=== PATIENT | female | born 1960 | race Caucasian/White ===

== ENCOUNTER 2017-07-14 16:53 | Inpatient (IN) | payer OTHER ==
[~2017-07-14] VITALS: Ht 177.8 cm; Wt 70.2 kg
[2017-07-14] VITALS (7 sets, daily range): BP systolic 110–121; BP diastolic 78–86; PULSE 101–123; RESP 16–28; TEMP 100.5–101; O2SAT 93–99
[2017-07-14] MEDS ORDERED: IOHEXOL 350 MG/ML 10 ML VIAL (for RAD DIAG) IVCONTRAST ONE (16:54)
[2017-07-14] MEDS ORDERED: SODIUM CHLOR 0.9% 1000 ML INJ 1,000 ML IV ONE ×2 (17:15)
[2017-07-14] MEDS ORDERED: ACETAMINOPHEN 650 MG SUPP RECTAL ONE (17:15)
--- NOTE | 2017-07-14 17:24 | PD ---
HPI Chief Complaint: Neuro Symptoms/ Deficits Time Seen by Provider: 16:55 Travel History International Travel<30 days: No Contact w/Intl Traveler<30days: No Traveled to known affect area: No History of Present Illness HPI Middle-aged female brought in by ambulance from home for evaluation of possible stroke. EMS reports that the patient has history of seizure disorder. She was last seen normal at 6 AM by her before he left work. She arrives here at just after 5 PM with dense left hemiparesis, rightward gaze, and aphasia. She is unable to provide any history. She does follow commands and moves her right arm and leg when asked to do so. Heart rate was noted to be in the 120s and a rectal temp of 101F. Her airway is patent and protected. Labs drawn, normal saline bolus hung, and the patient was probably taken to CT scan for CT of her head. Apparently her is on his way to the emergency department. [facility] Social History Tobacco Use: No Allergies-Medications (Allergen,Severity, Reaction): Coded Allergies: Unable to Assess (Verified Allergy, Unknown, 07/14/17) Reported Meds & Prescriptions Reported Meds & Active Scripts Active Reported Keppra (Levetiracetam) Unknown Strength Tab Unknown Dose PO BID Review of Systems ROS Limitations: Clinical Condition Physical Exam Narrative GENERAL: Well-developed, well-nourished, awake, rightward gaze, follows commands and moves both arm and leg when asked to do so, aphasic SKIN: Focused skin assessment warm/dry. No lacerations, abrasions, or ecchymosis. HEAD: Atraumatic. Normocephalic. EYES: Left pupil is 6 mm, round, reactive to light, right pupil is 5 mm, round, reactive to light. Rightward gaze. No scleral icterus. No injection or drainage. ENT: No nasal bleeding or discharge. Mucous membranes pink and moist. NECK: Trachea midline. No JVD. No nuchal rigidity. CARDIOVASCULAR: Tachycardic, rate 120, regular. RESPIRATORY: No accessory muscle use. Clear to auscultation. Breath sounds equal bilaterally. GASTROINTESTINAL: Abdomen soft, non-tender, nondistended. MUSCULOSKELETAL: No obvious deformities. No clubbing. No cyanosis. No edema. NEUROLOGICAL: Awake and alert. Dense left hemiparesis. Normal muscle strength and right arm and leg. Rightward gaze. Data Data Last Documented VS Vital Signs Date Time Temp Pulse Resp B/P (MAP) Pulse Ox O2 Delivery O2 Flow Rate FiO2 07/14/17 17:05 94 Nasal Cannula 2.00 07/14/17 17:03 101.0 07/14/17 16:57 123 28 121/80 (94) Orders Orders Electrocardiogram (07/14/17 16:56) Prothrombin Time / Inr (Pt) (07/14/17 16:56) Act Partial Throm Time (Ptt) (07/14/17 16:56) Complete Blood Count With Diff (07/14/17 16:56) Comprehensive Metabolic Panel (07/14/17 16:56) Urinalysis - C+S If Indicated (07/14/17 16:56) Ct Brain W/O Iv Contrast(Rout) (07/14/17 16:56) Ecg Monitoring (07/14/17 16:56) Iv Access Insert/Monitor (07/14/17 16:56) Oximetry (07/14/17 16:56) Lactic Acid (07/14/17 17:10) Blood Culture (07/14/17 17:10) Acetaminophen Supp (Tylenol Supp) (07/14/17 17:15) Sodium Chlor 0.9% 1000 Ml Inj (Ns 1000 M (07/14/17 17:15) Sodium Chlor 0.9% 1000 Ml Inj (Ns 1000 M (07/14/17 17:15) Ckmb (Isoenzyme) Profile (07/14/17 16:56) Troponin I (07/14/17 16:56) Iohexol 350 Inj (Omnipaque 350 Inj) (07/14/17 16:54) Aspirin Supp (Aspirin Supp) (07/14/17 18:15) Type And Screen (07/14/17 18:09) Urine Culture (07/14/17 17:36) Chest, Single Ap (07/14/17 ) Alcohol (Ethanol) (07/14/17 17:35) Cta Brain W Iv Contrast W 3d (07/14/17 ) Cta Neck W Iv Contrast W 3d (07/14/17 ) Ceftriaxone Inj (Rocephin Inj) (07/14/17 18:30) CKMB (07/14/17 17:35) CKMB% (07/14/17 17:35) Arterial Blood Gas (Abg) (07/14/17 ) Admit Order (Ed Use Only) (07/14/17 20:21) Labs Laboratory Tests Test 07/14/17 17:30 07/14/17 17:35 07/14/17 17:36 07/14/17 18:50 Lactic Acid Level 2.6 mmol/L Prothrombin Time 11.8 SEC Prothromb Time International Ratio 1.1 RATIO Activated Partial Thromboplast Time 21.7 SEC Blood Urea Nitrogen 9 MG/DL Creatinine 1.08 MG/DL Random Glucose 96 MG/DL Total Protein 8.2 GM/DL Albumin 2.9 GM/DL Calcium Level 9.3 MG/DL Alkaline Phosphatase 122 U/L Aspartate Amino Transf (AST/SGOT) 113 U/L Alanine Aminotransferase (ALT/SGPT) 30 U/L Total Bilirubin 1.1 MG/DL Sodium Level 139 MEQ/L Potassium Level 3.4 MEQ/L Chloride Level 108 MEQ/L Carbon Dioxide Level 14.1 MEQ/L Anion Gap 17 MEQ/L Estimat Glomerular Filtration Rate 44 ML/MIN Total Creatine Kinase 347 U/L Creatine Kinase MB 18.1 NG/ML Creatine Kinase MB % 5.2 % Troponin I 14.60 NG/ML Ethyl Alcohol Level LESS THAN 3 MG/DL Urine Color YELLOW Urine Turbidity HAZY Urine pH 6.0 Urine Specific [place] 1.013 Urine Protein 30 mg/dL Urine Glucose (UA) NEG mg/dL Urine Ketones NEG mg/dL Urine Occult Blood SMALL Urine Nitrite POS Urine Bilirubin NEG Urine Urobilinogen LESS THAN 2.0 MG/DL Urine Leukocyte Esterase SMALL Urine RBC 1 /hpf Urine WBC 9 /hpf Urine Hyaline Casts 9 /lpf Urine Mucus FEW /lpf Microscopic Urinalysis Comment CATH-CULTURE IND White Blood Count 15.8 TH/MM3 Red Blood Count 3.33 MIL/MM3 Hemoglobin 11.6 GM/DL Hematocrit 36.7 % Mean Corpuscular Volume 110.3 FL Mean Corpuscular Hemoglobin 35.0 PG Mean Corpuscular Hemoglobin Concent 31.7 % Red Cell Distribution Width 14.0 % Platelet Count 109 TH/MM3 Mean Platelet Volume 9.1 FL Neutrophils (%) (Auto) 89.8 % Lymphocytes (%) (Auto) 3.7 % Monocytes (%) (Auto) 6.4 % Eosinophils (%) (Auto) 0.0 % Basophils (%) (Auto) 0.1 % Neutrophils # (Auto) 14.2 TH/MM3 Lymphocytes # (Auto) 0.6 TH/MM3 Monocytes # (Auto) 1.0 TH/MM3 Eosinophils # (Auto) 0.0 TH/MM3 Basophils # (Auto) 0.0 TH/MM3 CBC Comment DIFF FINAL Differential Comment Test 07/14/17 20:10 Blood Gas Puncture Site LT FEMORAL Blood Gas Patient Temperature 98.6 Blood Gas HCO3 14 mmol/L Blood Gas Base Excess -11.0 mmol/L Blood Gas Oxygen Saturation 93 % Arterial Blood pH 7.32 Arterial Blood Partial Pressure CO2 28 mmHg Arterial Blood Partial Pressure O2 77 mmHG Arterial Blood Oxygen Content 15.7 Vol % Arterial Blood Carboxyhemoglobin 1.1 % Arterial Blood Methemoglobin 0.6 % Blood Gas Hemoglobin 12.0 G/DL Oxygen Delivery Device NASAL CANNULA Blood Gas Liter Flow 3 L/M MDM Medical Decision Making Medical Screen Exam Complete: Yes Emergency Medical Condition: Yes Differential Diagnosis CVA/ICH, Cedric's paralysis, metabolic abnormality, sepsis, rhabdomyolysis, meningitis, encephalitis Narrative Course The patient presents with dense left hemiparesis with rightward gaze. Stroke alert was not called because of unknown time of onset of symptoms. Last seen normal at 6 AM and presented to the emergency department just after 5 PM. 6:00 PM: The patient's johnna Hui is at the bedside. I made him aware of the patient's clinical condition. He tells me that the patient drinks alcohol daily drinking between 6 and 8 mixed drinks with rum and Coke daily. She had a head trauma in 2013 that resulted in an intracranial hemorrhage. She was started on Keppra at that time and has been taking it for seizures. She is not on any antiplatelets or anticoagulants. Her full name is MIGEL HUI and her date of is 58. Initial vital signs show heart rate 123, blood pressure 121/80, pulse ox 93% on room air, rectal temp of 101F. CT brain: CONCLUSION: 1. Large area of encephalomalacia in the right frontal lobe suggests either old infarction or prior surgical defect. There is no evidence of prior craniotomy however. 2. Questionable hypodensity in the lateral right cortex, possibly beam hardening artifact. May consider performing an MRI of the brain with and without contrast for further characterization. Patient was given a dose of aspirin. CMP is remarkable for bicarbonate 14.1, AST 113, alkaline phosphatase 122. Total CK is 347. Troponin is 14.6. At approximately 7:00 PM the patient was signed out to Dr. Loaiza to follow-up with the rest of the patient's labs and formulated disposition. Vignesh Yancey MD Jul 14, 2017 17:24
--- NOTE | 2017-07-14 17:39 | RADRPT ---
EXAM DATE/TIME: 07/14/2017 17:22 [facility] COMPARISON: No previous studies available for comparison. INDICATIONS : Right side gaze, unresponsive. RADIATION DOSE: 35.24 CTDIvol (mGy) MEDICAL HISTORY : Seizures. SURGICAL HISTORY : None. ENCOUNTER: Initial ACUITY: 1 day PAIN SCALE: Non-responsive LOCATION: cranial TECHNIQUE: Multiple contiguous axial images were obtained of the head. Using automated exposure control and adj ustment of the mA and/or kV according to patient size, radiation dose was kept as low as reasonably a chievable to obtain optimal diagnostic quality images. DICOM format image data is available electro nically for review and comparison. FINDINGS: CEREBRUM: There is a prominent area of encephalomalacia adjacent to the right frontal horn extending to the cor tical surface of the mid convexity right frontal region. There is questionable hypodensity in the la teral aspect of the right temporal lobe adjacent to the superior middle cranial fossae, best seen on image #12. This could be due to beam hardening artifact. The ventricles are symmetric in size. Mil d expected enlargement of the right frontal horn. No evidence of midline shift. No evidence of acut e blood products or extra-axial blood. POSTERIOR FOSSA: The cerebellum and brainstem are intact. The 4th ventricle is midline. The cerebellopontine angle i s unremarkable. EXTRACRANIAL: The visualized portion of the orbits is intact. SKULL: The calvaria is intact. No evidence of skull fracture. CONCLUSION: 1. Large area of encephalomalacia in the right frontal lobe suggests either old infarction or prior s urgical defect. There is no evidence of prior craniotomy however. 2. Questionable hypodensity in the lateral right cortex, possibly beam hardening artifact. May consi pablo performing an MRI of the brain with and without contrast for further characterization. Abdiaziz Jolley MD on July 14, 2017 at 17:33 Board Certified Radiologist. This report was verified electronically.
[2017-07-14 18:11] LABS: BLOOD, URINE SMALL (NEG); COMMENT (UR) CATH-CULTURE IND; CULTURE IF INDICATED CATH CULTURE IND; GLUCOSE,URINE NEG (NEG); HYALINE CAST, URINE 9 /lpf (RARE); KETONE, URINE NEG (NEG); MUCUS URINE FEW /lpf (OCC); NITRITE,URINE POS (NEG); URINE COLOR YELLOW (YELLW/STRAW)
[2017-07-14] MEDS ORDERED: ASPIRIN 300 MG SUPP RECTAL ONE (18:15)
[2017-07-14 18:21] LABS: APTT (PATIENT) 21.7 SEC (24.3-30.1); INTERNATIONAL NORMALIZED RATIO 1.1 RATIO; PROTHROMBIN TIME - PATIENT 11.8 SEC (9.8-11.6)
[2017-07-14] MEDS ORDERED: cefTRIAXone INJ 1,000 MG in SODIUM CHLORIDE 0.9% INJ 100 ML IV ONE (18:30)
[2017-07-14 18:44] LABS: ANION GAP 17 MEQ/L (5-15); AST (GOT) 113 U/L (15-37); BICARBONATE 14.1 MEQ/L (21.0-32.0); BLOOD UREA NITROGEN 9 MG/DL (7-18); CHLORIDE 108 MEQ/L (98-107); GLOMERULAR FILTRATION RATE 44 ML/MIN (>89); POTASSIUM 3.4 MEQ/L (3.5-5.1); SODIUM (NA) 139 MEQ/L (136-145)
[2017-07-14 18:45] LABS: ALCOHOL LESS THAN 3 MG/DL (0-5)
[2017-07-14 18:48] LABS: ALKALINE PHOSPHATASE 122 U/L (45-117); ALT (GPT) 30 U/L (10-53); CREATINE KINASE 347 U/L (26-192); TOTAL BILIRUBIN ADULT 1.1 MG/DL (0.2-1.0)
--- NOTE | 2017-07-14 18:49 | RADRPT ---
EXAM DATE/TIME: 07/14/2017 17:26 [facility] COMPARISON: No previous studies available for comparison. INDICATIONS : Altered mental status. IV CONTRAST: 88 cc Omnipaque 350 (iohexol) IV RADIATION DOSE: 27.85 CTDIvol (mGy) MEDICAL HISTORY : Non-responsive. SURGICAL HISTORY : Non-responsive. ENCOUNTER: Initial ACUITY: 1 day PAIN SCALE: Non-responsive LOCATION: Bilateral head TECHNIQUE: Volumetric scanning was performed using a multi-row detector CT scanner. The data was post processed with a variety of visualization algorithms including full volume maximum intensity projection, multi -planar sliding thin slab reformation, curved planar reformation, and surface rendering techniques. Using automated exposure control and adjustment of the mA and/or kV according to patient size, radiat ion dose was kept as low as reasonably achievable to obtain optimal diagnostic quality images. DICO M format image data is available electronically for review and comparison. FINDINGS: Anterior circulation: Distal intracranial internal carotid arteries are patent with flow extending to the middle and anteri or cerebral arteries. There is no evidence for aneurysm, vessel truncation or stenosis, and no eviden ce for vascular malformation. Posterior circulation: Symmetric distal vertebral arteries with flow extending to basilar artery. There is no evidence for aneurysm, vessel truncation or stenosis, and no evidence for vascular malformation. Redemonstration of large encephalomalacic defect in the right frontoparietal mid convexities. CONCLUSION: 1. Unremarkable CTA examination of the head. No evidence for large vessel occlusion, vascular malform ation, or aneurysm. Phoenix Ingram MD on July 14, 2017 at 18:45 Board Certified Radiologist. This report was verified electronically.
--- NOTE | 2017-07-14 19:01 | RADRPT ---
EXAM DATE/TIME: 07/14/2017 17:26 [facility] COMPARISON: No previous studies available for comparison. INDICATIONS : Altered mental status. IV CONTRAST: 88 cc Omnipaque 350 (iohexol) IV ; Cumulative dose for multiple exams. RADIATION DOSE: 27.85 CTDIvol (mGy) ; Combined studies MEDICAL HISTORY : Non-responsive. SURGICAL HISTORY : Non-responsive. ENCOUNTER: Initial ACUITY: 1 day PAIN SCALE: Non-responsive LOCATION: Bilateral neck Elevated flow velocities and ICA/CCA ratios have been found to correlate with increased degrees of vessel stenosis, calculated as percentage of diameter relative to a normal segment of distal ICA/CCA. TECHNIQUE: Volumetric scanning was performed using a multirow detector CT scanner. The data was post processed with a variety of visualization algorithms including full-volume maximum intensity projection, multip lanar sliding thin-slab reformation, curved-planar reformation, and surface-rendering techniques. Us ing automated exposure control and adjustment of the mA and/or kV according to patient size, radiatio n dose was kept as low as reasonably achievable to obtain optimal diagnostic quality images. DICOM f ormat image data is available electronically for review and comparison. FINDINGS: AORTIC ARCH: There is a three-vessel origin of the great vessels from the aorta. Cord of the left carotid artery is partially obscured by dense contrast in the adjacent vein. Otherwise, no evidence of ostial narrow ing. RIGHT CAROTID: The common carotid artery is intact. Eccentric bulky calcified plaque extending from the distal bulb to the origin of the internal carotid artery. Resultant approximately 15% stenosis. Internal carotid artery is otherwise patent to the skull base. The external carotid artery is intact. LEFT CAROTID: The common carotid artery is intact. The carotid bulb has a normal configuration without ulceration or narrowing. Minimal calcified plaque in the distal bulb extending to the origin of the internal car otid artery with resultant approximate 5-10% stenosis. Internal carotid artery is otherwise patent to the skull base. The external carotid artery is intact. VERTEBRALS: Slightly asymmetrical vertebral arteries with a dominant left vertebral artery. No stenotic lesions a re seen. CONCLUSION: 1. No significant flow-limiting stenosis. There is 15% stenosis of the right internal carotid artery origin and approximately 5-10% stenosis of the left internal carotid artery origin secondary to calci fied plaque extending from the distal bulb. 2. Patent bilateral vertebral arteries. Phoenix Ingram MD on July 14, 2017 at 18:55 Board Certified Radiologist. This report was verified electronically.
--- NOTE | 2017-07-14 19:02 | RADRPT ---
EXAM DATE/TIME: 07/14/2017 18:30 [facility] COMPARISON: No previous studies available for comparison. INDICATIONS : Fever. MEDICAL HISTORY : None. SURGICAL HISTORY : None. ENCOUNTER: Initial ACUITY: 1 day PAIN SCORE: Non-responsive. LOCATION: chest FINDINGS: Metallic artifact from patient's bra superimposes upon the superior mediastinum. The patient is rota volodymyr towards the right. The lungs are clear. No definite infiltrate seen. Both hemidiaphragms well delineated. The heart is normal in size. CONCLUSION: No infiltrates seen. Abdiaziz Jolley MD on July 14, 2017 at 19:00 Board Certified Radiologist. This report was verified electronically.
[2017-07-14 19:06] LABS: CKMB 18.1 NG/ML (0.5-3.6)
[2017-07-14] MEDS ORDERED: KEPP10002 PO (19:14)
[2017-07-14 19:54] LABS: AUTOMATED NEUTROPHIL # 14.2 TH/MM3 (1.8-7.7); BASOPHIL % 0.1 % (0.0-2.0); HEMATOCRIT 36.7 % (35.0-46.0); HEMO FLAGS DIFF FINAL; LYMPH % 3.7 % (9.0-44.0); LYMPHOCYTE # 0.6 TH/MM3 (1.0-4.8); MEAN CELL VOLUME 110.3 FL (80.0-100.0); MEAN CORPUSCULAR HGB CONC 31.7 % (32.0-36.0); MONO % 6.4 % (0.0-8.0); NEUT % 89.8 % (16.0-70.0); PLATELET COUNT 109 TH/MM3 (150-450); RED BLOOD COUNT 3.33 MIL/MM3 (4.00-5.30); WHITE BLOOD COUNT 15.8 TH/MM3 (4.0-11.0)
[2017-07-14] MEDS ORDERED: SODIUM CHLOR 0.9% 1000 ML INJ 1,000 ML IV SCH (20:24)
[2017-07-14] MEDS ORDERED: ONDANSETRON HCL 4 MG/2 ML VIAL IV PUSH PRN (20:30)
[2017-07-14] MEDS ORDERED: MISCELLANEOUS NURSING INFORMATION XX SCH (20:30)
[2017-07-14] MEDS ORDERED: ASPIRIN 325 MG TAB PO SCH (20:30)
[2017-07-14] MEDS ORDERED: LORazepam 2 MG/ML VIAL IV PUSH PRN (20:30)
[2017-07-14] MEDS ORDERED: SENNOSIDES 8.6 MG TAB PO PRN (20:30)
[2017-07-14] MEDS ORDERED: MORPHINE SULFATE 4 MG/ML INJ IV PUSH PRN (20:30)
[2017-07-14] MEDS ORDERED: LACTULOSE SYRUP 20 GM/30 ML CUP PO PRN (20:30)
[2017-07-14] MEDS ORDERED: ACETAMINOPHEN 325 MG TAB PO PRN (20:30)
[2017-07-14] MEDS ORDERED: BISACODYL 10 MG SUPP RECTAL PRN (20:30)
[2017-07-14] MEDS ORDERED: MAGNESIUM HYDROXIDE SUSP 30 ML CUP PO PRN (20:30)
[2017-07-14] MEDS ORDERED: CHLORHEXIDINE GLUCONATE 2 % 1 PACK (2 CLOTHS) TOP PRN (20:30)
[2017-07-14] MEDS ORDERED: SODIUM CHLORIDE 0.9% FLUSH 10 ML FLUSH IV FLUSH PRN (20:30)
[2017-07-14] MEDS ORDERED: RESP: ALBUTEROL 2.5 MG/IPRATROPIUM 0.5 MG NEB (PRN) INH (20:30)
[2017-07-14 20:31] LABS: BLOOD GAS CARBOXYHEMOGLOBIN 1.1 % (0-4); BLOOD GAS HCO3 14 mmol/L (22-26); BLOOD GAS METHEMOGLOBIN 0.6 % (0-2); BLOOD GAS O2 HGB SATURATION 93 % (90-100); BLOOD GAS OXYGEN CONTENT 15.7 Vol % (12.0-20.0); BLOOD GAS PCO2 28 mmHg (38-42); BLOOD GAS PO2 77 mmHG (61-120); CRITICAL VALUE YES; DRAW SITE LT FEMORAL; LITER FLOW 3 L/M; NUMBER OF ARTERIAL PUNCTURES 1; OXYGEN DEVICE NASAL CANNULA; STAT YES; TEMP CORR TO 98.6
--- NOTE | 2017-07-14 20:31 | HHI.HP ---
HPI Service Critical Care Medicine Primary Care Physician Kayden Key MD Admission Diagnosis stroke Diagnosis: Travel History International Travel<30 Days: No Contact w/Intl Traveler <30 Da: No Traveled to Known Affected Are: No History of Present Illness Middle-aged female with history of seizures is brought in by ambulance from home for evaluation of possible stroke. She was last seen normal at 6 AM by her before he left for work. She arrived here at just after 5 PM with dense left hemiparesis, rightward gaze, right-sided neglect and aphasia. She is unable to provide any history. She does follow commands and moves her right arm and leg when asked to do so. She is fully awake and able to protect her airways. Due to timeframe she is not a candidate for TPA. Review of Systems ROS Unobtainable patient is aphasic Past Family Social History Allergies: Coded Allergies: Unable to Assess (Verified Allergy, Unknown, 07/14/17) Past Medical History Seizure Past Surgical History Unobtainable Reported Medications Reported Meds & Active Scripts Active Reported Keppra (Levetiracetam) Unknown Strength Tab Unknown Dose PO BID Active Ordered Medications Current Medications Medications (Trade) Dose Ordered Sig/Kasandra Route PRN Reason Start Time Stop Time Status Last Admin Dose Admin Sodium Chloride 1,000 ml @ 84 mls/hr [id number] IV 07/14/17 20:24 07/14/17 22:37 Sodium Chloride (NS Flush) 2 ml UNSCH PRN IV FLUSH FLUSH AFTER USING IV ACCESS 07/14/17 20:30 Sodium Chloride (NS Flush) 2 ml BID IV FLUSH 07/14/17 21:00 07/14/17 22:38 Acetaminophen (Tylenol) 650 mg Q6H PRN PO PAIN 1-10 AND/OR FEVER >101F 07/14/17 20:30 Morphine Sulfate (Morphine Inj) 2 mg Q2H PRN IV PUSH PAIN SCALE 6 TO 10 07/14/17 20:30 Famotidine (Pepcid Inj) 20 mg Q12HR IV PUSH 07/14/17 21:00 07/14/17 22:38 Lorazepam (Ativan Inj) 1 mg Q1H PRN IV PUSH Agitation/Seizure 07/14/17 20:30 Ondansetron HCl (Zofran Inj) 4 mg Q6H PRN IV PUSH NAUSEA OR VOMITING 07/14/17 20:30 Albuterol/ Ipratropium (Duoneb Neb) 1 ampule Q2HR NEB PRN INH WHEEZING 07/14/17 20:30 Heparin Sodium (Porcine) (Heparin Inj) 5,000 units Q8H SQ 07/14/17 21:00 07/14/17 22:38 Miscellaneous Information 1 [id number] XX 07/14/17 20:30 Chlorhexidine Gluconate (Chlorhexidine 2% Cloth) 3 pack Taper DAILY@04 TOP 07/15/17 04:00 07/11/18 03:59 Chlorhexidine Gluconate (Chlorhexidine 2% Cloth) 3 pack UNSCH PRN TOP HYGIENIC CARE 07/14/17 20:30 Senna/Docusate Sodium (Kaitlin-Colace) 1 tab BID PO 07/14/17 21:00 Magnesium Hydroxide (Milk Of Magnesia Liq) 30 ml Q12H PRN PO MILD - MODERATE CONSTIPATION 07/14/17 20:30 Sennosides (Senokot) 17.2 mg Q12H PRN PO MODERATE - SEVERE CONSTIPATION 07/14/17 20:30 Bisacodyl (Dulcolax Supp) 10 mg DAILY PRN RECTAL SEVERE CONSITIPATION 07/14/17 20:30 Lactulose (Lactulose Liq) 30 ml DAILY PRN PO SEVERE CONSITIPATION 07/14/17 20:30 Levetriacetam 500 mg/Sodium Chloride 105 ml @ 420 mls/hr Q12HR IV 07/14/17 21:00 07/14/17 22:38 Aspirin (Aspirin) 325 mg DAILY PO 07/14/17 20:30 Family History Unobtainable Social History Unobtainable Physical Exam Vital Signs Vital Signs Date Time Temp Pulse Resp B/P (MAP) Pulse Ox O2 Delivery O2 Flow Rate FiO2 07/14/17 17:05 94 Nasal Cannula 2.00 07/14/17 17:03 101.0 07/14/17 16:57 101.0 123 28 121/80 (94) 93 Physical Exam GENERAL: Well-developed, well-nourished, awake, rightward gaze, follows commands and moves both arm and leg when asked to do so, aphasic SKIN: Focused skin assessment warm/dry. No lacerations, abrasions, or ecchymosis. HEAD: Atraumatic. Normocephalic. EYES: Left pupil is 6 mm, round, reactive to light, right pupil is 5 mm, round, reactive to light. Rightward gaze. No scleral icterus. No injection or drainage. ENT: No nasal bleeding or discharge. Mucous membranes pink and moist. NECK: Trachea midline. No JVD. No nuchal rigidity. CARDIOVASCULAR: Tachycardic, rate 120, regular. RESPIRATORY: No accessory muscle use. Clear to auscultation. Breath sounds equal bilaterally. GASTROINTESTINAL: Abdomen soft, non-tender, nondistended. MUSCULOSKELETAL: No obvious deformities. No clubbing. No cyanosis. No edema. NEUROLOGICAL: Awake and alert. Dense left hemiparesis. Normal muscle strength and right arm and leg. Rightward gaze. Laboratory Laboratory Tests Test 07/14/17 17:30 07/14/17 17:35 07/14/17 17:36 07/14/17 18:50 Lactic Acid Level 2.6 Prothrombin Time 11.8 Prothromb Time International Ratio 1.1 Activated Partial Thromboplast Time 21.7 Blood Urea Nitrogen 9 Creatinine 1.08 Random Glucose 96 Total Protein 8.2 Albumin 2.9 Calcium Level 9.3 Alkaline Phosphatase 122 Aspartate Amino Transf (AST/SGOT) 113 Alanine Aminotransferase (ALT/SGPT) 30 Total Bilirubin 1.1 Sodium Level 139 Potassium Level 3.4 Chloride Level 108 Carbon Dioxide Level 14.1 Anion Gap 17 Estimat Glomerular Filtration Rate 44 Total Creatine Kinase 347 Creatine Kinase MB 18.1 Creatine Kinase MB % 5.2 Troponin I 14.60 Ethyl Alcohol Level LESS THAN 3 Urine Color YELLOW Urine Turbidity HAZY Urine pH 6.0 Urine Specific [place] 1.013 Urine Protein 30 Urine Glucose (UA) NEG Urine Ketones NEG Urine Occult Blood SMALL Urine Nitrite POS Urine Bilirubin NEG Urine Urobilinogen LESS THAN 2.0 Urine Leukocyte Esterase SMALL Urine RBC 1 Urine WBC 9 Urine Hyaline Casts 9 Urine Mucus FEW Microscopic Urinalysis Comment CATH-CULTURE IND White Blood Count 15.8 Red Blood Count 3.33 Hemoglobin 11.6 Hematocrit 36.7 Mean Corpuscular Volume 110.3 Mean Corpuscular Hemoglobin 35.0 Mean Corpuscular Hemoglobin Concent 31.7 Red Cell Distribution Width 14.0 Platelet Count 109 Mean Platelet Volume 9.1 Neutrophils (%) (Auto) 89.8 Lymphocytes (%) (Auto) 3.7 Monocytes (%) (Auto) 6.4 Eosinophils (%) (Auto) 0.0 Basophils (%) (Auto) 0.1 Neutrophils # (Auto) 14.2 Lymphocytes # (Auto) 0.6 Monocytes # (Auto) 1.0 Eosinophils # (Auto) 0.0 Basophils # (Auto) 0.0 CBC Comment DIFF FINAL Differential Comment Test 07/14/17 20:10 Date/Time Source Procedure Growth Status 07/14/17 17:35 Blood Peripheral Aerobic Blood Culture Pending Received 07/14/17 17:35 Blood Peripheral Anaerobic Blood Culture Pending Received 07/14/17 17:36 Urine Clean Catch Urine Culture Pending Worksheet Result Diagram: 07/14/17 1850 07/14/17 1735 Caprini VTE Risk Assessment Caprini VTE Risk Assessment: Mod/High Risk (score >= 2) Caprini Risk Assessment Model Point Value = 1 Point Value = 2 Point Value = 3 Point Value = 5 Age 41-60 Minor surgery BMI > 25 kg/m2 Swollen legs Varicose veins or History of unexplained or recurrent spontaneous Oral contraceptives or hormone replacement Sepsis (< 1 month) Serious lung disease, including pneumonia (< 1 month) Abnormal pulmonary function Acute myocardial infarction Congestive heart failure (< 1 month) History of inflammatory bowel disease Medical patient at bed rest Age 61-74 Arthroscopic surgery Major open surgery (> 45 min) Laparoscopic surgery (> 45 min) Malignancy Confined to bed (> 72 hours) Immobilizing plaster cast Central venous access Age >= 75 History of VTE Family history of VTE Factor V Leiden Prothrombin [id number] Lupus anticoagulant Anticardiolipin antibodies Elevated serum homocysteine Heparin-induced thrombocytopenia Other congenital or acquired thrombophilia Stroke (< 1 month) Elective arthroplasty Hip, pelvis, or leg fracture Acute spinal cord injury (< 1 month) Prophylaxis Regimen Total Risk Factor Score Risk Level Prophylaxis Regimen 0-1 Low Early ambulation 2 Moderate Order ONE of the following: *Sequential Compression Device (SCD) *Heparin 5000 units SQ BID 3-4 Higher Order ONE of the following medications: *Heparin 5000 units SQ TID *Enoxaparin/Lovenox 40 mg SQ daily (WT < 150 kg, CrCl > 30 mL/min) *Enoxaparin/Lovenox 30 mg SQ daily (WT < 150 kg, CrCl > 10-29 mL/min) *Enoxaparin/Lovenox 30 mg SQ BID (WT < 150 kg, CrCl > 30 mL/min) AND/OR *Sequential Compression Device (SCD) 5 or more Highest Order ONE of the following medications: *Heparin 5000 units SQ TID (Preferred with Epidurals) *Enoxaparin/Lovenox 40 mg SQ daily (WT < 150 kg, CrCl > 30 mL/min) *Enoxaparin/Lovenox 30 mg SQ daily (WT < 150 kg, CrCl > 10-29 mL/min) *Enoxaparin/Lovenox 30 mg SQ BID (WT < 150 kg, CrCl > 30 mL/min) AND *Sequential Compression Device (SCD) Assessment and Plan Assessment and Plan Acute CVA - CT head and CTA negative - MRI pending - Neurology consult - Aspirin - Atorvastatin - Hold further anticoagulation until MRI evaluation for stroke due to high risk of hemorrhagic conversion Leukocytosis - Fever - Tachycardia - Blood cultures - CXR clear - Broad-spectrum antibiotics - De-escalate per sensitivity Seizure disorder - Keppra Elevated troponins - No EKG suggested acute coronary syndrome - Likely from the stroke - Cardiology consult - Hold heparin drip due to worrisome of hemorrhagic conversion of CVA - Atorvastatin and aspirin - 2-D echo - Series of EKG and troponin Transaminitis - Questionable history of alcohol use - Monitor trend Hypokalemia - Electrolyte replacement per ICU protocol DVT GI prophylaxis - Teds SCDs - Subcutaneous heparin and Pepcid Critical Care: The total critical care time was 35 minutes. Time to perform other separately billable procedures was not included in the critical care time. Bobo Valadez MD Jul 14, 2017 20:31
--- NOTE | 2017-07-14 20:48 | PD ---
Data Data Last Documented VS Vital Signs Date Time Temp Pulse Resp B/P (MAP) Pulse Ox O2 Delivery O2 Flow Rate FiO2 07/14/17 17:05 94 Nasal Cannula 2.00 07/14/17 17:03 101.0 07/14/17 16:57 123 28 121/80 (94) Orders Orders Electrocardiogram (07/14/17 16:56) Prothrombin Time / Inr (Pt) (07/14/17 16:56) Act Partial Throm Time (Ptt) (07/14/17 16:56) Complete Blood Count With Diff (07/14/17 16:56) Comprehensive Metabolic Panel (07/14/17 16:56) Urinalysis - C+S If Indicated (07/14/17 16:56) Ct Brain W/O Iv Contrast(Rout) (07/14/17 16:56) Ecg Monitoring (07/14/17 16:56) Iv Access Insert/Monitor (07/14/17 16:56) Oximetry (07/14/17 16:56) Lactic Acid (07/14/17 17:10) Blood Culture (07/14/17 17:10) Acetaminophen Supp (Tylenol Supp) (07/14/17 17:15) Sodium Chlor 0.9% 1000 Ml Inj (Ns 1000 M (07/14/17 17:15) Sodium Chlor 0.9% 1000 Ml Inj (Ns 1000 M (07/14/17 17:15) Ckmb (Isoenzyme) Profile (07/14/17 16:56) Troponin I (07/14/17 16:56) Iohexol 350 Inj (Omnipaque 350 Inj) (07/14/17 16:54) Aspirin Supp (Aspirin Supp) (07/14/17 18:15) Type And Screen (07/14/17 18:09) Urine Culture (07/14/17 17:36) Chest, Single Ap (07/14/17 ) Alcohol (Ethanol) (07/14/17 17:35) Cta Brain W Iv Contrast W 3d (07/14/17 ) Cta Neck W Iv Contrast W 3d (07/14/17 ) Ceftriaxone Inj (Rocephin Inj) (07/14/17 18:30) CKMB (07/14/17 17:35) CKMB% (07/14/17 17:35) Arterial Blood Gas (Abg) (07/14/17 ) Admit Order (Ed Use Only) (07/14/17 20:21) Labs Laboratory Tests Test 07/14/17 17:30 07/14/17 17:35 07/14/17 17:36 07/14/17 18:50 Lactic Acid Level 2.6 mmol/L Prothrombin Time 11.8 SEC Prothromb Time International Ratio 1.1 RATIO Activated Partial Thromboplast Time 21.7 SEC Blood Urea Nitrogen 9 MG/DL Creatinine 1.08 MG/DL Random Glucose 96 MG/DL Total Protein 8.2 GM/DL Albumin 2.9 GM/DL Calcium Level 9.3 MG/DL Alkaline Phosphatase 122 U/L Aspartate Amino Transf (AST/SGOT) 113 U/L Alanine Aminotransferase (ALT/SGPT) 30 U/L Total Bilirubin 1.1 MG/DL Sodium Level 139 MEQ/L Potassium Level 3.4 MEQ/L Chloride Level 108 MEQ/L Carbon Dioxide Level 14.1 MEQ/L Anion Gap 17 MEQ/L Estimat Glomerular Filtration Rate 44 ML/MIN Total Creatine Kinase 347 U/L Creatine Kinase MB 18.1 NG/ML Creatine Kinase MB % 5.2 % Troponin I 14.60 NG/ML Ethyl Alcohol Level LESS THAN 3 MG/DL Urine Color YELLOW Urine Turbidity HAZY Urine pH 6.0 Urine Specific [place] 1.013 Urine Protein 30 mg/dL Urine Glucose (UA) NEG mg/dL Urine Ketones NEG mg/dL Urine Occult Blood SMALL Urine Nitrite POS Urine Bilirubin NEG Urine Urobilinogen LESS THAN 2.0 MG/DL Urine Leukocyte Esterase SMALL Urine RBC 1 /hpf Urine WBC 9 /hpf Urine Hyaline Casts 9 /lpf Urine Mucus FEW /lpf Microscopic Urinalysis Comment CATH-CULTURE IND White Blood Count 15.8 TH/MM3 Red Blood Count 3.33 MIL/MM3 Hemoglobin 11.6 GM/DL Hematocrit 36.7 % Mean Corpuscular Volume 110.3 FL Mean Corpuscular Hemoglobin 35.0 PG Mean Corpuscular Hemoglobin Concent 31.7 % Red Cell Distribution Width 14.0 % Platelet Count 109 TH/MM3 Mean Platelet Volume 9.1 FL Neutrophils (%) (Auto) 89.8 % Lymphocytes (%) (Auto) 3.7 % Monocytes (%) (Auto) 6.4 % Eosinophils (%) (Auto) 0.0 % Basophils (%) (Auto) 0.1 % Neutrophils # (Auto) 14.2 TH/MM3 Lymphocytes # (Auto) 0.6 TH/MM3 Monocytes # (Auto) 1.0 TH/MM3 Eosinophils # (Auto) 0.0 TH/MM3 Basophils # (Auto) 0.0 TH/MM3 CBC Comment DIFF FINAL Differential Comment Test 07/14/17 20:10 Blood Gas Puncture Site LT FEMORAL Blood Gas Patient Temperature 98.6 Blood Gas HCO3 14 mmol/L Blood Gas Base Excess -11.0 mmol/L Blood Gas Oxygen Saturation 93 % Arterial Blood pH 7.32 Arterial Blood Partial Pressure CO2 28 mmHg Arterial Blood Partial Pressure O2 77 mmHG Arterial Blood Oxygen Content 15.7 Vol % Arterial Blood Carboxyhemoglobin 1.1 % Arterial Blood Methemoglobin 0.6 % Blood Gas Hemoglobin 12.0 G/DL Oxygen Delivery Device NASAL CANNULA Blood Gas Liter Flow 3 L/M MDM Supervised Visit with SONIA: No Narrative Course This is a patient who presents to the emergency department who was a history of alcoholism as well as prior traumatic brain injury here having been found by her with dense left hemiplegia, right gaze deviation and aphasia. She was last seen normal at 6 AM the time of onset of symptoms is unclear and she would not be a TPA candidate. On arrival she is septic with tachycardia and fever. She was given a dose of ceftriaxone and 2 L of IV fluid and cultures were obtained. CT imaging demonstrates old encephalomalacia but no obvious acute intracranial hemorrhage. CTA is reassuring. Patient has evidence of some ketosis and has a troponin of 14. I spoke to Dr. Potts who is on-call for neurology. We discussed the risks versus benefits of anticoagulating this patient in the setting of an elevated troponin. Her EKG is nonischemic. We agreed to defer heparin at this time as the patient has a very high risk of hemorrhagic conversion given the likely size of her infarct. We will make a decision following MRI. I spoke to Dr. Valadez who agreed to admit the patient to the intensive care unit for further management as she is quite complex with sepsis, likely severe stroke, and history of alcoholism at risk for withdrawals. Critical Care Narrative Aggregate critical care time was 40 minutes. Time to perform other separately billable procedures was not included in the critical care time. My time did not include minutes spent treating any other patients simultaneously or on activities that did not directly contribute to the patient's treatment. The services I provided to this patient were to treat and/or prevent clinically significant deterioration that could result in: Disability, I provided critical care services requiring my management, as noted below: Chart data review, documentation time, medication orders and management, vital sign assessments/reviewing monitor data, ordering and reviewing lab tests, ordering and interpreting/reviewing x-rays and diagnostic studies, care of the patient and discussion of the patient with the admitting physicians. Physician Communication Physician Communication Discussed with Dr. Potts and Dr. Valadez Diagnosis Primary Impression: Stroke Qualified Codes: I63.9 - Cerebral infarction, unspecified Admitting Information Admitting Physician Requests: it Duyen Loaiza MD Jul 14, 2017 20:48
[2017-07-14] MEDS: DOCUSATE SODIUM 50 MG/SENNA 8.6 MG TAB PO SCH (21:00)
[2017-07-14 21:39] LABS: CKMB 23.1 NG/ML (0.5-3.6)
[2017-07-14] MEDS: HEPARIN SODIUM - SQ 10,000 UNITS/ML VIAL SQ SCH (22:38)
[2017-07-14] MEDS: FAMOTIDINE 20 MG/2 ML VIAL IV PUSH SCH (22:38)
[2017-07-14] MEDS: SODIUM CHLORIDE 0.9% FLUSH 10 ML FLUSH IV FLUSH SCH (22:38)
[2017-07-14] MEDS: levETIRAcetam INJ 500 MG in SODIUM CHLORIDE 0.9% INJ 100 ML IV SCH (22:38)
[2017-07-15] VITALS (13 sets, daily range): BP systolic 85–121; BP diastolic 63–91; PULSE 76–102; RESP 20–24; TEMP 98.7–101.3; O2SAT 97–100
--- NOTE | 2017-07-15 01:17 | EKG ---
Date Performed: 07/14/2017 Time Performed: 17:06:09 PTAGE: 89 years EKG: SINUS TACHYCARDIA INCOMPLETE RIGHT BUNDLE BRANCH BLOCK NONSPECIFIC ST DEPRESSION ABNORMAL E CG NO PREVIOUS TRACING DOCTOR: Kirill Islas Interpretating Date/Time 07/15/2017 01:15:48
[2017-07-15] MEDS ORDERED: Vancomycin Consult Pharmacy 1 EA OTHER SCH (03:00)
[2017-07-15] MEDS ORDERED: POTASSIUM PHOSPHATE MONOBASIC 500 MG TAB PO/TUBE PRN (03:15)
[2017-07-15] MEDS ORDERED: POTASSIUM CHLORIDE 25 MEQ EFFERVESCENT TAB PO PRN (03:15)
[2017-07-15] MEDS ORDERED: POTASSIUM CHLOR 40 MEQ PREMIX 100 ML IV PRN ×2 (03:15)
[2017-07-15] MEDS ORDERED: POTASSIUM PHOSPHATE INJ 30 MMOL in SODIUM CHLOR 0.9% 250 ML INJ 250 ML IV PRN (03:15)
[2017-07-15] MEDS ORDERED: POTASSIUM CHLOR 20 MEQ PREMIX 100 ML IV PRN (03:15)
[2017-07-15] MEDS ORDERED: MAGNESIUM OXIDE 400 MG TAB PO PRN (03:15)
[2017-07-15] MEDS ORDERED: SODIUM PHOSPHATE INJ 30 MMOL in SODIUM CHLOR 0.9% 250 ML INJ 240 ML IV PRN (03:15)
[2017-07-15] MEDS ORDERED: MAGNESIUM SULFATE INJ 4 GM in SODIUM CHLORIDE 0.9% INJ 92 ML IV PRN (03:15)
[2017-07-15] MEDS ORDERED: POTASSIUM PHOSPHATE MONOBASIC 500 MG TAB PO PRN (03:15)
[2017-07-15] MEDS ORDERED: MAGNESIUM SULFATE INJ 2 GM in SODIUM CHLORIDE 0.9% INJ 96 ML IV PRN (03:15)
[2017-07-15] MEDS: PIPERACIL-TAZO 4.5 GM PREMIX 100 ML IV SCH ×4 (03:28→21:15)
[2017-07-15] MEDS: CHLORHEXIDINE GLUCONATE 2 % 1 PACK (2 CLOTHS) TOP SCH (04:00)
[2017-07-15] MEDS ORDERED: VANCOMYCIN INJ 1,000 MG in SODIUM CHLOR 0.9% 250 ML INJ 250 ML IV ONE (04:00)
[2017-07-15 04:19] LABS: AUTOMATED NEUTROPHIL # 13.2 TH/MM3 (1.8-7.7); BASOPHIL % 0.2 % (0.0-2.0); HEMATOCRIT 36.3 % (35.0-46.0); LYMPHOCYTE # 0.9 TH/MM3 (1.0-4.8); MEAN CELL VOLUME 107.1 FL (80.0-100.0); MEAN CORPUSCULAR HEMOGLOBIN 35.6 PG (27.0-34.0); MEAN CORPUSCULAR HGB CONC 33.3 % (32.0-36.0); MONO % 3.2 % (0.0-8.0); NEUT % 90.6 % (16.0-70.0); RED BLOOD COUNT 3.39 MIL/MM3 (4.00-5.30); RED CELL DISTRIBUTION WIDTH 13.6 % (11.6-17.2); WHITE BLOOD COUNT 14.6 TH/MM3 (4.0-11.0)
[2017-07-15 04:28] LABS: INTERNATIONAL NORMALIZED RATIO 1.1 RATIO; PROTHROMBIN TIME - PATIENT 12.7 SEC (9.8-11.6)
[2017-07-15 04:39] LABS: ANION GAP 13 MEQ/L (5-15)
[2017-07-15 04:41] LABS: HEMO FLAGS AUTO DIFF
[2017-07-15 04:44] LABS: ALKALINE PHOSPHATASE 93 U/L (45-117); ALT (GPT) 37 U/L (10-53); AST (GOT) 147 U/L (15-37); BLOOD UREA NITROGEN 9 MG/DL (7-18); CHLORIDE 112 MEQ/L (98-107); GLOMERULAR FILTRATION RATE 80 ML/MIN (>89); MAGNESIUM 1.6 MG/DL (1.5-2.5); SODIUM (NA) 142 MEQ/L (136-145); TOTAL BILIRUBIN ADULT 0.9 MG/DL (0.2-1.0)
[2017-07-15 04:46] LABS: POTASSIUM 2.8 MEQ/L (3.5-5.1)
[2017-07-15] MEDS: HEPARIN SODIUM - SQ 10,000 UNITS/ML VIAL SQ SCH (05:00)
[2017-07-15] MEDS: POTASSIUM CHLOR 20 MEQ PREMIX 100 ML IV PRN ×4 (05:23→13:06)
--- NOTE | 2017-07-15 06:04 | RADRPT ---
EXAM DATE/TIME: 07/15/2017 05:52 [facility] COMPARISON: CT BRAIN W/O CONTRAST, July 14, 2017, 17:22. INDICATIONS : Altered. Evaluate for bleed. RADIATION DOSE: 36.22 CTDIvol (mGy) MEDICAL HISTORY : Seizures. SURGICAL HISTORY : None. ENCOUNTER: Initial ACUITY: 1 day PAIN SCALE: Non-responsive LOCATION: cranial TECHNIQUE: Multiple contiguous axial images were obtained of the head. Using automated exposure control and adj ustment of the mA and/or kV according to patient size, radiation dose was kept as low as reasonably a chievable to obtain optimal diagnostic quality images. DICOM format image data is available electro nically for review and comparison. FINDINGS: CEREBRUM: Stable right frontal encephalomalacia. No new mass, hemorrhage or shift. POSTERIOR FOSSA: The cerebellum and brainstem are intact. The 4th ventricle is midline. The cerebellopontine angle i s unremarkable. EXTRACRANIAL: The visualized portion of the orbits is intact. SKULL: The calvaria is intact. No evidence of skull fracture. CONCLUSION: 1. Stable right frontal encephalomalacia compared with July 14. No new findings. Juancho Reece MD on July 15, 2017 at 6:01 Board Certified Radiologist. This report was verified electronically.
[2017-07-15] MEDS ORDERED: SODIUM CHLOR 0.9% 1000 ML INJ 1,000 ML IV SCH ×2 (08:41→12:20)
[2017-07-15] MEDS ORDERED: DEXTROSE 50% IN WATER 50 ML VIAL(D50) IV PUSH PRN (08:45)
[2017-07-15] MEDS ORDERED: SODIUM CHLORIDE 0.9% FLUSH 5 ML FLUSH IV FLUSH PRN (08:45)
[2017-07-15] MEDS ORDERED: GLUCAGON 1 MG/ML VIAL OTHER PRN (08:45)
[2017-07-15] MEDS ORDERED: ATORVASTATIN 80 MG TAB PO SCH (09:00)
[2017-07-15] MEDS: DOCUSATE SODIUM 50 MG/SENNA 8.6 MG TAB PO SCH ×2 (09:00→20:51)
--- NOTE | 2017-07-15 09:00 | HHI.CCPN ---
Subjective Remarks/Hospital Course Middle-aged female with history of seizures is brought in by ambulance from home for evaluation of possible stroke. She was last seen normal at 6 AM by her before he left for work. She arrived here at just after 5 PM with dense left hemiparesis, rightward gaze, right-sided neglect and aphasia. She is unable to provide any history. She does follow commands and moves her right arm and leg when asked to do so. She is fully awake and able to protect her airways. Due to timeframe she is not a candidate for TPA. Subjective: 07/15: Tmax 100.2. Repeat troponin level was noted to be significantly elevated. Patient was placed on atorvastatin and received aspirin. Concern for large CVA infarct with risk for hemorrhagic conversion heparin was deferred. The patient's labs reveal significant thrombocytopenia with a platelet count of 46, possible clumping of specimen repeat platelet count in process. Neurological status remains unchanged with dense left hemiplegia and left-sided neglect with noted aphasia. Repeat CT scan was obtained unremarkable no change. MRI pending this a.m.. Objective Vital Signs Date Time Temp Pulse Resp B/P (MAP) Pulse Ox O2 Delivery O2 Flow Rate FiO2 07/15/17 06:00 86 07/15/17 04:00 100.2 24 96/72 (80) 98 07/14/17 23:41 Room Air 07/14/17 22:39 2.00 Intake and Output 07/15/17 07/15/17 07/16/17 08:00 16:00 00:00 Intake Total 815 ml Output Total 580 ml Balance 235 ml Result Diagram: 07/15/17 0830 07/15/17 0327 Other Results Laboratory Tests Test 07/14/17 20:10 Blood Gas Puncture Site LT FEMORAL Blood Gas Patient Temperature 98.6 Blood Gas HCO3 14 mmol/L (22-26) Blood Gas Base Excess -11.0 mmol/L (-2-2) Blood Gas Oxygen Saturation 93 % (90-100) Arterial Blood pH 7.32 (7.380-7.420) Arterial Blood Partial Pressure CO2 28 mmHg (38-42) Arterial Blood Partial Pressure O2 77 mmHG (61-120) Arterial Blood Oxygen Content 15.7 Vol % (12.0-20.0) Arterial Blood Carboxyhemoglobin 1.1 % (0-4) Arterial Blood Methemoglobin 0.6 % (0-2) Blood Gas Hemoglobin 12.0 G/DL (12.0-16.0) Oxygen Delivery Device NASAL CANNULA Blood Gas Liter Flow 3 L/M Imaging Last Impressions Head CT 07/14/17 1656 Signed Impressions: Service Date/Time: Sunday, July 14, 2017 17:22 - CONCLUSION: 1. Large area of encephalomalacia in the right frontal lobe suggests either old infarction or prior surgical defect. There is no evidence of prior craniotomy however. 2. Questionable hypodensity in the lateral right cortex, possibly beam hardening artifact. May consider performing an MRI of the brain with and without contrast for further characterization. Abdiaziz Jolley MD Objective Remarks GENERAL: Well-developed, well-nourished, awake, rightward gaze, follows commands right upper and lower extremity .Aphasic SKIN: Focused skin assessment warm/dry. No lacerations, abrasions, noted ecchymosis bilateral upper extremity. HEAD: Atraumatic. Normocephalic. EYES: Left pupil is 6 mm, round, reactive to light, right pupil is 5 mm, round, reactive to light. Rightward gaze. No scleral icterus. No injection or drainage. ENT: No nasal bleeding or discharge. Mucous membranes pink and moist. NECK: Trachea midline. No JVD. No nuchal rigidity. CARDIOVASCULAR: Normal rate ,regular rhythm. Telemetry sinus rhythm RESPIRATORY: No accessory muscle use. Clear to auscultation. Breath sounds equal bilaterally. GASTROINTESTINAL: Abdomen soft, non-tender, nondistended. Normoactive bowel sounds MUSCULOSKELETAL: No obvious deformities. No clubbing. No cyanosis. No edema. NEUROLOGICAL: Awake and alert. Dense left hemiplegia. Left hemespacial neglect Normal muscle strength and right arm and leg. Rightward gaze. Receptive and expressive aphasia. Urinary Catheter: Yes [place] insert reason: Measure Accurate Output Date of Insertion: Jul 14, 2017 A/P Assessment and Plan Acute CVA - 07/14 CT head -encephalomalacia right frontal lobe, old infarct ,or prior surgical defect but no craniotomy scar. Hypodensity lateral right cortex -07/[address] head-unchanged -CTA negative - 07/15 MRI pending - Neurology following, Dr. Potts - Aspirin daily - Atorvastatin 80 mg/day -07/15 initial lab review platelet count 46, repeat CBC drawn platelet count 125 -Obtain lipid panel -Formal swallow evaluation this a.m. Leukocytosis - Fever - Blood cultures follow-up results - CXR clear - Broad-spectrum antibiotics - De-escalate per sensitivity Seizure disorder EtOH use disorder - Keppra BID -Seizure precautions -Ativan when necessary -Monitor signs of alcohol withdrawal -MVI, Thiamine , Folate Elevated troponins NSTEMI - Initial EKG not suggestive of acute coronary syndrome, repeat EKG 07/15 anterior septal changes suggestive of ID injury/ischemia - Likely from the stroke 14.6->18.7 - Cardiology consulted - 07/15 MRI-negative for acute infarct, initiate heparin infusion - Atorvastatin and aspirin. Beta chao held at this time secondary to low normal BP, systolic blood pressure mid 90's-100 -Obtain stat 2-D [id number] function and possible thrombus - Series of EKG and troponin Transaminitis - Questionable history of alcohol use - Monitor trend Hypokalemia - Electrolyte replacement per ICU protocol DVT GI prophylaxis - Teds SCDs Heparin infusion - Pepcid Dispo: Discussed with Dr. Potts, MRI negative for acute infarct, initiation of heparin infusion. Discussed with [employer] at bedside. my billing statement This patient remains critically ill with one or more organ systems which are or may become a threat to life. I have spent in excess of 50 minutes discontinuously in the care and management of this patient. This time is exclusive of procedures, and includes, but is not limited to, evaluation of the patient, review of the medical record, discussions with family, consultants, nursing staff, or respiratory therapy, and documentation in the medical record. Physician Yarely Nguyen MD Jul 15, 2017 09:00
[2017-07-15 09:13] LABS: PLATELET COUNT 125 TH/MM3 (150-450)
[2017-07-15 09:30] LABS: SCAN/DIFF AUTO DIFF CONFIRMED
--- NOTE | 2017-07-15 09:35 | RADRPT ---
EXAM DATE/TIME: 07/15/2017 08:49 [place] COMPARISON: CTA BRAIN W 3D RECON, July 14, 2017, 17:26. CT BRAIN W/O CONTRAST, July 15, 2017, 5:52. INDICATIONS : CVA. MEDICAL HISTORY : Hypertension. SURGICAL HISTORY : Orthopedic. ENCOUNTER: Initial ACUITY: 1 day PAIN SCORE: 0/10 LOCATION: cranial TECHNIQUE: Multiplanar, multisequence MRI of the brain was performed without contrast. FINDINGS: CEREBRUM: Stable appearance of right frontal lobe encephalomalacia and surrounding gliosis. This extends toward s the frontal horn of the right lateral ventricle. No evidence of a traction, mass effect or midline shift. The sulci demonstrate no evidence of effacement.. WHITE MATTER: No significant signal abnormalities are seen in the white matter. POSTERIOR FOSSA: The cerebellum and brainstem are intact. The 4th ventricle is midline. The cerebellopontine angle is unremarkable. The cerebellar tonsils are normal in position. DIFFUSION IMAGING: No focal areas of restricted diffusion are seen. No evidence of acute infarction. EXTRACRANIAL: The visualized portions of the orbits and paranasal sinuses are unremarkable. 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 No evidence of acute abnormality.. Shaina Canas MD on July 15, 2017 at 9:30 Board Certified Radiologist. This report was verified electronically.
[2017-07-15] MEDS: FAMOTIDINE 20 MG/2 ML VIAL IV PUSH SCH ×2 (09:37→20:51)
[2017-07-15] MEDS: levETIRAcetam INJ 500 MG in SODIUM CHLORIDE 0.9% INJ 100 ML IV SCH ×2 (09:37→20:51)
[2017-07-15] MEDS: SODIUM CHLORIDE 0.9% FLUSH 10 ML FLUSH IV FLUSH SCH ×2 (09:38→20:51)
--- NOTE | 2017-07-15 09:55 | EKG ---
Date Performed: 07/15/2017 Time Performed: 02:30:12 PTAGE: 89 years EKG: Sinus rhythm . rSr'(V1) - probable normal variant Anteroseptal, lateral ST changes suggest myocardial ischemia Inc omplete right bundle branch block Abnormal ECG PREVIOUS TRACING : 07/14/2017 17.06 No significant change from previous tracing noted. DOCTOR: Kirill Islas Interpretating Date/Time 07/15/2017 09:54:09
--- NOTE | 2017-07-15 10:07 | MB ---
cc: ALENA TAPIA M.D. DATE OF CONSULTATION: 07/15/2017 REASON FOR CONSULTATION: Stroke. HISTORY OF PRESENT ILLNESS This is a patient who presented to the ER yesterday evening was noted to have a dense left hemiplegia with right gaze deviation and aphasia. It was unclear as to the exact time of onset of the neurologic symptoms. The last time she was seen normal was apparently 6 o'clock in the morning yesterday morning. Her troponin was found to be elevated as well at 14. Initial CT of the brain revealed old encephalomalacia in the right frontal lobe consistent with an old defect. No evidence of any acute changes present. No hemorrhage was seen. I discussed the case in the emergency room with Dr. Vázquez. An discuss the case in the emergency room at Dr. Loaiza. I recommended against anticoagulation because of the profound neurological deficit which suggested a very large area of infarction which would pose a significant hemorrhagic risk. The patient was clearly not a candidate for TPA also, given the uncertainty of the timing of the onset of her symptoms. The last time where she was seen normal was 6 o'clock in the morning. She also was evaluated with CT angiogram of the head which was within normal limits with no evidence of any large vessel occlusion. CT angiogram of the neck was also obtained which was unremarkable with no significant carotid artery stenosis. Over the evening she has remained essentially unchanged neurologically with dense left hemiplegia and neglect. PAST MEDICAL HISTORY: According to the chart: 1. History of alcohol abuse. 2. History of seizure in the past. 3. History of head injury in the past. MEDICATIONS AT HOME: 1. Keppra b.i.d. The milligrams are unknown. ALLERGIES: Unknown. NEUROLOGICAL EXAMINATION: Vital signs: Blood pressure 96/72, pulse 90 regular, respirations are 16, temperature 100.2 degrees. Higher cortical function, the patient is alert, appearing with her eyes open. She has no spontaneous speech output. She cannot repeat simple phrases. She does follow simple commands. She has significant left hemispatial neglect. On cranial nerve exam, the pupils are equal. The eyes are deviated to the right. She has a left facial droop. On motor examination, she has a dense left hemiplegia with essentially 0/5 strength on the left leg. She is able to move the right arm and right leg to commands normally. There is a question of possible increased tone at the left ankle versus chronic arthritic changes. CT scan of the brain obtained this morning is unchanged from yesterday's CT, again showing an area of encephalomalacia on the right frontal area which appears to be old but no acute change present. LABORATORY DATA: White count is 14,600, hemoglobin 12.1, hematocrit 36.3%, platelets 46,000 today, yesterday 109,000. Apparently the platelets might have been clumped and the sample is being redrawn to recheck the platelet count. The sodium is 142. The potassium is 2.8, chloride 112, CO2 is 17, BUN is 9, creatinine 0.64, GFR 80, glucose 114, calcium is 8.1, AST 147, ALT 37, alk phos 93. CPK 416, MB percentage of 5.6%, troponin yesterday was 13.8, this morning it is 18.7, albumin 2.5, Tox screen, alcohol level is less than 3. Urinalysis, pH is 6, specific gravity 1.013, protein 30. Small occult blood is present, nitrite positive, small leukocyte esterase 9, WBCs present. The EKG shows sinus tachycardia, incomplete right bundle branch block, nonspecific ST depression. IMPRESSION The patient has evidence of a right hemisphere stroke probably involving the right MCA territory. Given her examination and findings, my concern is that this would likely be a very large area of stroke given her dense left hemiplegia as well as hemispatial neglect and right eye deviation. For this reason would recommend against anticoagulation as there would be significant hemorrhagic risk into the stroke. She has no evidence of any carotid artery stenosis on the CT angiogram. I would recommend continued cardiac telemetry to rule out atrial fibrillation. Will also obtain an echocardiogram, also obtain an MRI of the brain for further evaluation which would be helpful in further defining the size of the stroke. Will also check a lipid panel. Will recheck the platelet count as well. If the platelet count is higher, will continue the aspirin 325 milligrams daily. Also continue Keppra, would recommend 500 milligrams IV b.i.d. because there is apparently a history of seizures. Will also place her under seizure precautions. Thank you for asking me to see this patient. MD ADRIÁN Wilson/MARIA EUGENIA /8:35 AM /9:38 AM
[2017-07-15] MEDS ORDERED: HEPARIN-D5W 25,000 U/250 ML 250 ML IV PRN (10:15)
[2017-07-15] MEDS: ASPIRIN 300 MG SUPP RECTAL SCH (11:01)
--- NOTE | 2017-07-15 11:37 | MB ---
cc: RIMA LITTLE MD DATE OF CONSULTATION: 07/15/2017 REASON FOR CONSULTATION: Non-ST elevation KS. HISTORY OF PRESENT ILLNESS: The patient is a Nicole Villasenor of unknown age, who presented to the ER with apparently dense left hemiplegia, right gaze deviation and aphasia. By the time I am seeing her she has some speech capability. She does indicate that she gets chest pain intermittently but seems to deny chest pain currently and when I asked if she has any cardiac problems, she said no. She also follows basic commands. This is about the extent of the history that I was able to elicit from her, and the rest is from the chart. PAST MEDICAL HISTORY: Unknown. CURRENT MEDICATIONS: 1. Vancomycin. 2. Heparin drip. 3. Aspirin. 4. Zosyn. 5. Famotidine. 6. Levetiracetam. ALLERGIES: Unknown. PHYSICAL EXAMINATION: Temperature 100.2, pulse 90, respiratory rate 24, BP 96/72 sating 98. GENERAL: Awake woman who follows some basic commands and answers some questions appropriately though inconsistently. NECK: No JVD. LUNGS: Clear to auscultation bilaterally. CARDIOVASCULAR: Regular rate and rhythm. No murmurs appreciated. ABDOMEN: Benign. EXTREMITIES: No edema. LABORATORY DATA: White count 14.6, down from 15.8, hematocrit 36.3, platelet count 125. Sodium 142, potassium 2.8, chloride 112, bicarb 17, BUN 9, creatinine 0.64, lactic acid 2.7, troponin 18.7. UA shows possible UTI. EKG showed sinus rhythm anteroseptal ST and T-wave changes consistent with ischemia. IMPRESSION 1. Non-ST elevation KS. The patient presents with primarily neurologic symptoms has a remarkably high troponin and EKG changes concerning for ischemia. She does endorse intermittent chest pain but again her history is very difficult due to the neurologic process. I do think she will likely require a cardiac catheterization at some point but this is complicated by whether or not she can have long-term anticoagulation. The patient has an MRI that showed an old stroke but no acute stroke which is why I believe heparin was initiated but the change in mental status is somewhat unclear. 2. Her echocardiogram is pending which will also be important with prognostication and decision making. Further recommendations based on her clinical course. Thank you again for the opportunity to participate in this patient's care. MD MOHIT Alexis/MARIA EUGENIA /11:00 AM /11:21 AM
[2017-07-15] MEDS: INSULIN ASPART SUPPLEMENTAL SCALE SQ SCH ×3 (12:00→21:00)
--- NOTE | 2017-07-15 12:08 | ECHRPT ---
Indication: cva/tia CONCLUSIONS The left ventricular systolic function is low normal with an estimated ejection fraction in the rang e of 50- 55%. Possible basal-inferior hyopkinesis. Normal left ventricular size. Mild mitral valve regurgitation. There is mild to moderate, tricuspid valve regurgitation. The estimated pulmonary arterial pressure is 32.8 mmHg. BP: / HR: Rhythm: MEASUREMENTS (Male / Female) Normal Values Technical Quality:Technically difficult study 2D ECHO LV Diastolic Diameter PLAX 4.4 cm 4.2 - 5.9 / 3.9 - 5.3 cm LV Systolic Diameter PLAX 3.4 cm IVS Diastolic Thickness 1.3 cm 0.6 - 1.0 / 0.6 - 0.9 cm LVPW Diastolic Thickness 0.9 cm 0.6 - 1.0 / 0.6 - 0.9 cm LV Relative Wall Thickness 0.5 RV Internal Dim ED PLAX 3.0 cm M-MODE Aortic Root Diameter MM 3.1 cm LA Systolic Diameter MM 4.0 cm LA Ao Ratio MM 1.3 AV Cusp Separation MM 2.4 cm DOPPLER MV Peak Velocity 89.3 cm/s MV Peak Gradient 3.2 mmHg MV Mean Velocity 49.3 cm/s MV Mean Gradient 1.0 mmHg Mitral E Point Velocity 56.3 cm/s Mitral A Point Velocity 55.3 cm/s Mitral E to A Ratio 1.0 LV E' Lateral Velocity 7.4 cm/s Mitral E to LV E' Lateral Ratio 7.6 LV E' Septal Velocity 5.6 cm/s Mitral E to LV E' Septal Ratio 10.1 TR Peak Velocity 239.0 cm/s TR Peak Gradient 22.8 mmHg Right Atrial Pressure 10.0 mmHg Pulmonary Artery Systolic Pressu 32.8 mmHg Right Ventricular Systolic Press 32.8 mmHg FINDINGS LEFT VENTRICLE The left ventricular systolic function is low normal with an estimated ejection fraction in the rang e of 50- 55%. Normal left ventricular size. Possible basal-inferior hyopkinesis. RIGHT VENTRICLE Normal right ventricular size and systolic function. LEFT ATRIUM The left atrial size is normal. RIGHT ATRIUM The right atrial size is normal. ATRIAL SEPTUM Normal atrial septal thickness without atrial level shunting by limited color doppler interrogation. AORTA The aortic root and proximal ascending aorta are normal in size on limited imaging. MITRAL VALVE Mild mitral valve regurgitation. AORTIC VALVE Trileaflet aortic valve. No aortic valve stenosis or regurgitation. TRICUSPID VALVE There is mild to moderate tricuspid valve regurgitation. Structurally normal tricuspid valve. The estimated pulmonary arterial pressure is 32.8 mmHg. PULMONARY VALVE No pulmonary valve regurgitation or stenosis. VESSELS The inferior vena cava is normal in size. PERICARDIUM No pericardial effusion. Jermaine Peña MD (Electronically Signed) Final Date:15 July 2017 12:06
[2017-07-15 12:29] LABS: MEAN CELL VOLUME 107.8 FL (80.0-100.0); MEAN CORPUSCULAR HEMOGLOBIN 35.4 PG (27.0-34.0); MEAN CORPUSCULAR HGB CONC 32.9 % (32.0-36.0); RED BLOOD COUNT 3.72 MIL/MM3 (4.00-5.30); RED CELL DISTRIBUTION WIDTH 13.9 % (11.6-17.2); WHITE BLOOD COUNT 16.3 TH/MM3 (4.0-11.0)
[2017-07-15] MEDS ORDERED: diphenhydrAMINE HCL 50 MG CAP PO SCH (12:30)
[2017-07-15] MEDS ORDERED: DIAZEPAM 10 MG TAB PO SCH (12:30)
[2017-07-15 12:47] LABS: PLATELET COUNT 138 TH/MM3 (150-450); REVIEW FLAG AUTO DIFF
[2017-07-15 12:52] LABS: APTT (PATIENT) 26.2 SEC (24.3-30.1); INTERNATIONAL NORMALIZED RATIO 1.1 RATIO; PROTHROMBIN TIME - PATIENT 12.1 SEC (9.8-11.6)
--- NOTE | 2017-07-15 12:59 | MB ---
cc: HAO ODONNELL AKA: Joyce Hui DATE OF CONSULTATION: 07/15/2017 DATE OF : 1960 REASON FOR CONSULTATION: Cardiac catheterization. HISTORY OF PRESENT ILLNESS: Minimal history is obtainable from the patient. Some history is obtained from her as well as medical records. She is a 56 year-old white female with a history of seizure disorder, hypertension, who was brought to the hospital with acute stroke-like symptoms including left hemiparesis and aphasia. Workup, however, has revealed no definite evidence for acute stroke. Cardiac enzymes have been checked and found to be markedly abnormal. The patient at this time states she has no chest pain but seems to say she has chest pain intermittently. The patient also currently denies shortness of breath, nausea, dizziness. According to her , she was acting fairly normally when he last saw her yesterday morning. PAST MEDICAL HISTORY: 1. Hypertension. 2. Seizure disorder. CARDIAC MEDICATIONS AT HOME: None. ALLERGIES: NO KNOWN DRUG ALLERGIES. FAMILY HISTORY: Currently unobtainable. SOCIAL HISTORY: The patient smokes about a pack of cigarettes per day. There is no history of alcohol abuse. REVIEW OF SYSTEMS: As in the history of present illness, otherwise very difficult to elicit at this time. PHYSICAL EXAMINATION: On physical examination her blood pressure 96/72 with a pulse of 86, respirations 20. GENERAL: In general she is a well-developed, well-nourished white female in no acute distress. HEENT examination: Jugular venous pressure is normal. Carotid pulses are 2+ bilaterally and without bruits. CHEST: Examination of the chest reveals clear lung kumar/ CARDIAC: On cardiac examination she has a regular rhythm and rate without S3-S4 or murmur. ABDOMEN: On abdominal examination she has a soft, nontender abdomen. Bowel sounds are present. There is no definite hepatosplenomegaly. Extremities Examination of extremities reveals no clubbing, cyanosis or edema. Femoral pulses are 2+ bilaterally. LABORATORY DATA: Laboratory data includes WBC 14.6, platelets 125, hemoglobin 12.1, potassium 2.8, BUN 9, creatinine 0.64, troponin 18.7, CK 416. IMAGING STUDIES: EKG shows sinus rhythm, anterior and lateral ST abnormality consider ischemia. Chest x-ray shows no acute disease. IMPRESSION: Acute [id number] myocardial infarction in this 56-year-old white female with a history of hypertension, seizure disorder. I have been asked to see the patient for possible cardiac catheterization. Cardiac enzymes are clearly consistent with acute myocardial infarction. She also has ischemic EKG changes. History is fairly difficult to elicit from the patient at this time although she repeatedly denies any chest pain today. Brain MRI today shows no acute CVA. According to the patient's , her last seizure was about four weeks ago. Because of her abnormal cardiac enzymes and EKGs, I would agree with the need for cardiac catheterization. The nature of this procedure and potential risks have been outlined to the patient and patient's who agrees to proceed. RECOMMENDATIONS: 1. Cardiac catheterization tomorrow morning. 2. Agree with starting heparin drip today. 3. Hold off on beta chao and LENARD inhibitor therapy with her relatively low blood pressure. 4. Continue statin therapy and daily aspirin. MD BUSTER Reardon/MARIA EUGENIA /12:15 PM /12:47 PM MTDAden
[2017-07-15] MEDS: VANCOMYCIN 1,000 MG/NS 250 ML IV SCH ×2 (17:41)
[2017-07-15 18:41] LABS: APTT (PATIENT) 31.8 SEC (24.3-30.1)
[2017-07-15] MEDS: SODIUM CHLORIDE 0.9% FLUSH 5 ML FLUSH IV FLUSH SCH (20:50)
[2017-07-15] MEDS: ATORVASTATIN 80 MG TAB PO SCH (21:15)
[2017-07-16] VITALS (12 sets, daily range): BP systolic 92–111; BP diastolic 64–79; PULSE 80–92; RESP 19–28; TEMP 98.4–100.6; O2SAT 95–100
[2017-07-16] MEDS: SODIUM CHLOR 0.9% 1000 ML INJ 1,000 ML IV SCH ×2 (02:30→03:25)
[2017-07-16] MEDS: PIPERACIL-TAZO 4.5 GM PREMIX 100 ML IV SCH ×4 (02:35→20:48)
[2017-07-16 03:19] LABS: APTT (PATIENT) 41.1 SEC (24.3-30.1)
[2017-07-16 03:31] LABS: BICARBONATE 16.7 MEQ/L (21.0-32.0); HDL CHOLESTEROL 80.3 MG/DL (40.0-60.0); HEMATOCRIT 33.6 % (35.0-46.0); MAGNESIUM 1.5 MG/DL (1.5-2.5); MEAN CELL VOLUME 109.8 FL (80.0-100.0); MEAN CORPUSCULAR HEMOGLOBIN 35.7 PG (27.0-34.0); MEAN CORPUSCULAR HGB CONC 32.5 % (32.0-36.0); PLATELET COUNT 121 TH/MM3 (150-450); POTASSIUM 3.6 MEQ/L (3.5-5.1); RED BLOOD COUNT 3.06 MIL/MM3 (4.00-5.30); RED CELL DISTRIBUTION WIDTH 13.9 % (11.6-17.2); REVIEW FLAG FINAL; WHITE BLOOD COUNT 12.9 TH/MM3 (4.0-11.0)
[2017-07-16] MEDS: VANCOMYCIN 1,000 MG/NS 250 ML IV SCH ×4 (03:47→14:57)
[2017-07-16 03:48] LABS: CALCIUM-PROTEIN CORRECTED 7.4 MG/DL (8.5-10.1)
[2017-07-16] MEDS: CHLORHEXIDINE GLUCONATE 2 % 1 PACK (2 CLOTHS) TOP SCH (03:48)
[2017-07-16] MEDS ORDERED: HEPARIN-NS/PF INJ 500 ML ONE (07:21)
[2017-07-16] MEDS: SODIUM CHLORIDE 0.9% FLUSH 10 ML FLUSH IV FLUSH SCH (07:39)
[2017-07-16] MEDS: SODIUM CHLORIDE 0.9% FLUSH 5 ML FLUSH IV FLUSH SCH ×2 (07:39→20:48)
[2017-07-16] MEDS ORDERED: MIDAZOLAM HCL 2 MG/2 ML VIAL ONE (07:48)
[2017-07-16] MEDS: INSULIN ASPART SUPPLEMENTAL SCALE SQ SCH ×4 (08:00→20:49)
--- NOTE | 2017-07-16 08:04 | CATHPROC ---
[employer] HIS Report Study Information Study Number Admission Scheduled Start Study Start [id number] Jul 14 2017 8:25PM 07/15/2017 Jul 16 2017 7:24AM [place] [facility] Cardiac Catheterization Admit Source Facility Department Other [facility] - Counselor/Art Therapist Physician and Clinical Staff Initial Kirill Allen Dairy Equipment Repairerdonte Burch RN, Mikie Dairy Equipment RepairerNishi Sprague RN Recorder Taiwo Steve RCIS(BS) Scrub Jessica Beltrán,(R) Procedures Performed Procedure Location (Site) Vessel Name Angiogram LV LV Ventricle Coronary Angiograms LCA Left Coronary Coronary Angiograms RCA Right Coronary L Heart Cath Equipment Time [place] Tour Guide Description Size Mfg Part Number Used/Scraped TRANSDUCER, TRUWAVE [id number] 07:34 [employer] MILTON * Used W/STOCKCOCK *[id number] 07:57 [employer] MEDICAL VASCADE, FR6 CLOSURE SYSTEM FR 6\7 Used *[id number] *[id number] [id number] *[id number] [id number] *[id number] 07:34 fake company 2.0 [employer] PACK, CCL CUSTOM * Used *[id number] 07:34 fake company 2.0 PACER PEN, SKIN DUAL W/ RULER * Used *[id number] 07:34 64 [employer] SHEATH, FR6.5 PRELUDE 11CM FR 6.5 038ACT Used *[id number] 07:34 [employer] WIRE, 3MMJ .035 180CM 180CM Used *[id number] 07:34 NAMIC MANIFOLD, 4 PORT * Used *[id number] 07:34 [employer] OMNIPAQUE, 350 MG, 150ML 150ML [id number] Used [id number] 07:34 [employer] BLANKET,WARM AIR CCL * Used *[id number] History: Allergies Allergy Reaction Unable to Assess History: Risk Factors Family History of Hypertension Dyslipidemia Previous TN Previous Heart Failure Premature CAD No No No No No Prior Valve Prior PCI Prior CABG Surgery No No No Cerebrovascular Peripheral Artery Chronic Lung On Dialysis Diabetes Disease Disease Disease No Yes No No No History: Stress Tests Stress or Imaging Studies Performed No History: Other Current Smoker No Labs Hgb (g/dl) Hct (%) WBC (l/cumm) Platelets (thousands) 11.60-17.00 35.00-51.00 4.00-11.00 150.00-450.00 10.9 33.6 12.9 121 Glucose (mg/dl) BUN (mg/dl) Creatinine (mg/dl) BUN:Creatinine (1:x) 74.00-106.00 7.00-18.00 0.50-1.30 10.00-20.00 95 13 0.7 18.6 Na (meq/l) K (meq/l) 136.00-145.00 3.50-5.10 143 3.6 INR (PTT:PT) 0.90-1.10 1.1 Troponin I (ng/ml) CPK-MB (ng/ML) 0.02-0.05 0.50-3.60 20.2 Not Drawn Medication Medication Total Dose (Bolus/Oral) Medication Total Dosage/Unit 1% XYLOCAINE 20 mL VERSED 1 mg Medications (Bolus/Oral) Medication Time Given Dosage/Unit Administered By Reason 1% XYLOCAINE 07/16/2017 7:47:13 AM 20 mL Kirill Islas 20 mL 1% XYLOCAINE given in lab by Kirill Islas in Right Groin via Subcutaneous. Ordered by Chacho Islasn. VERSED 07/16/2017 7:49:40 AM 1 mg Mikie Burch RN 1 mg VERSED given in lab by Mikie Burch RN in Right Hand via Peripheral IV. Ordered by Kirill Islas. Medication (Drip) Medication Time Given Dosage/Unit Concentration/Unit Diluent (ml) Solution IV Solutions 07/16/2017 7:24:49 AM 0 mL (IV) 500 NaCl .9 Patient arrived on IV Solutions in Right Hand via Peripheral IV. Pump/Drip Flow = 20 ml/hr using NaCl .9. Ordered by Kirill Islas. Initial Case Assessment Cardiovascular HR Rhythm Chest Pain 83 SR 0 Edema Present Skin color Skin None Normal Warm Dry Circulatory - Right Pulses Dorsalis Pedis Femoral 1 2 Scale (0,1,2,3,4,d) Circulatory - Left Pulses Dorsalis Pedis Femoral 1 2 Scale (0,1,2,3,4,d) Circulatory - Lower Extremities Color Lower Right Color Lower Left Normal Normal Neurological State Oriented to time-place- Lethargic person Respiration - General Respiration Rate SpO2 (%) (B/min) 30 96 Chronological Log Time Study Chronological Log 7:15:30 Patient arrived via Bed. 7:15:31 Patient Name, D.O.B, / Armband Verified By R.N. 7:15:32 Consent signed by the physician and the patient and verified by the Counselor/Art Therapist staff. 7:15:33 Pre-op and post- op instructions given; patient acknowledges understanding of instructions. 7:15:41 Patient has been NPO for Less than 6Hrs. 7:24:41 Skin Breakdown- sores 7:24:45 Patient Warmer Placed on the Table. 7:24:48 A # 18 IV was noted in the Hand (right). Grade = 0 Patient arrived on IV Solutions in Right Hand via Peripheral IV. Pump/Drip Flow = 20 ml/hr usin g NaCl .9. Ordered by 7:24:49 Kirill Islas. 7:24:50 History and physical on the chart or being dictated. Assessment: Initial Case, HR=83 BPM, Rhythm=SR, Chest Pain=0, Edema=None, Color=Normal, Skin = W arm, Dry Right Pulses: Zoran Ped=1, Femoral=2 Left Pulses: Zoran Ped=1, Femoral=2 7:24:50 Lower Right Extremities: Color=Normal Lower Left Extremities: Color=Normal Neurological: State=Lethargic, Ox3 Respiration: Resp=30 B/min, SpO2=96 % Vitals capture started with the following parameters, Patient=Adult, Interval=5 min, Initial Pre bdxlm=503 mmHg, 7:26:46 Deflation Rate=5 mmHg, Cuff placed on Right Arm 7:26:57 HR=87 bpm, SINV=253/89 mmhg, SpO2=97 %, Resp=23 B/min, Pain=0, Douglas=9, Ratliff=1 7:30:10 Reference ECG taken 7:31:30 HR=83 bpm, ZUOU=177/84 mmhg, SpO2=96.0 %, Resp=6 B/min 7:36:29 HR=87 bpm, GNER=473/86 mmhg, SpO2=97.0 %, Resp=29 B/min 7:39:35 Bilateral groins prepped with 2% chlorhexidine, and draped after a 3 minute waiting time. 7:39:39 paged 7:40:46 Pressure channel 1 zeroed. 7:41:30 HR=86 bpm, ERON=353/80 mmhg, SpO2=96.0 %, Resp=26 B/min, Pain=0, Douglas=9, Ratliff=1 7:41:33 MD responded 7:44:05 MD arrived. 7:46:31 HR=85 bpm, QWBF=183/85 mmhg, SpO2=97.0 %, Resp=15 B/min, Pain=0, Douglas=9, Ratliff=1 Time Out. Correct patient, correct procedure, correct physician, power injector not loaded with contrast with surgical 7:46:45 team present. Time Out Concurred by MD and individual staff in procedure. 7:47:11 Case Start 7:47:13 20 mL 1% XYLOCAINE given in lab by Kirill Islas in Right Groin via Subcutaneous. Ordered by Kirill Islas. 7:47:24 Access site was Right Femoral Artery. 7:48:45 A SHEATH, FR6.5 PRELUDE 11CM FR 6.5 was advanced into the Fem Art (right) using the Percutan eous technique. A JL 4.0 INFINITI CATHETER FR 6 was advanced over a wire. OMNIPAQUE, 350 MG, 150ML 150ML was use d for 7:49:04 injections. 7:49:40 1 mg VERSED given in lab by Mikie Burch RN in Right Hand via Peripheral IV. Ordered by Kirill Headley. 7:50:15 The LCA was injected and visualized at various angles. OMNIPAQUE, 350 MG, 150ML 150ML used. Recorded Pressure: Ao, HR=86, Condition=Condition 1 7:50:31 (Aorta) Ao 106/70/86 7:51:30 Catheter was removed A 3DRC INFINITI CATHETER FR 6 was advanced over a wire. OMNIPAQUE, 350 MG, 150ML 150ML was used for 7:51:31 injections. 7:51:34 HR=77 bpm, NIBP=96/71 mmhg, SpO2=96.0 %, Resp=29 B/min, Pain=0, Douglas=9, Ratliff=1 7:52:16 The RCA was injected and visualized at various angles. OMNIPAQUE, 350 MG, 150ML 150ML used. 7:53:47 Catheter was removed A PIGTAIL STR INFINITI CATHETER FR 6 was advanced over a wire. OMNIPAQUE, 350 MG, 150ML 150ML wa s used for 7:53:50 injections. 7:54:03 The LV was injected at 12 cc/sec for a total of 42. OMNIPAQUE, 350 MG, 150ML 150ML used. Recorded Pressure: LV, HR=87, Condition=Condition 1 7:54:16 (Left Ventricle) LV 89/6/19 Recorded Pressure: LV, Ao, HR=84, Condition=Condition 1 7:55:36 (Left Ventricle) LV 82/-15/17, (Aorta) Ao 82/52/66 7:56:25 Catheter was removed 7:56:33 HR=83 bpm, NIBP=97/69 mmhg, SpO2=95.0 %, Resp=26 B/min, Pain=0, Douglas=9, Ratliff=1 7:56:36 An injection in the Fem Art (right) was made through the SHEATH, FR6.5 PRELUDE 11CM FR 6.5. 7:56:49 VASCADE, FR6 CLOSURE SYSTEM FR 6\7 placement in the Fem Art (right) 7:57:56 Case End 7:57:57 Sterile dressing applied to site 7:57:58 No case complications noted. 7:57:59 Cine recording checked. 7:58:01 Bedside Report will be given. 7:58:02 Contrast Scanned 7:58:06 A Left Heart Cath was performed. 7:58:06 [facility] 8:[facility] HR=81 bpm, NIBP=98/65 mmhg, SpO2=93.0 %, Resp=24 B/min, Pain=0, Douglas=9, Ratliff=1 End Study - Contrast Media Used In Study Contrast Total Opened (mL) Total Used (mL) Total Wasted (mL) Omnipaque 80 80 0 End Study - Maximum Contrast Load Max Contrast Load (mL) 446.4 End Study - Radiation Exposure Fluoro Time (minutes) 0.9 End Study - Patient Disposition Complications Transferred To No Telemetry Bed
[2017-07-16] MEDS ORDERED: ATROPINE SULFATE 1 MG/ML VIAL IV PRN (08:15)
[2017-07-16] MEDS ORDERED: MISC INFORMATION XX ONE (08:15)
[2017-07-16] MEDS ORDERED: SODIUM CHLOR 0.9% 250 ML INJ 250 ML IV PRN (08:15)
--- NOTE | 2017-07-16 08:35 | MA ---
cc: RIMA LITTLE MD, GLENN H. M.D. DATE 07/16/2017 DATE OF 1960 PROCEDURE Left heart catheterization, selective coronary angiography, left ventriculography. PROCEDURE NOTES The patient was brought to the cardiac catheterization laboratory in a fasting state after having signed informed consent. The right groin was prepped and draped as per policy and anesthetized with 1% lidocaine. Arterial access was obtained via the right femoral artery and a 6-Albanian sheath placed. Coronary arteriography was performed using a 6-Albanian Yulissa left 4.0 and right progressive catheters. Left ventriculography was done using a standard 6-Albanian pigtail. There were no apparent immediate complications. Her arteriotomy site was closed with Vascade with the achievement of good hemostasis. HEMODYNAMIC RESULTS Left ventricle 82 with an end-diastolic pressure of 17. Aorta 82/52 with a mean of 66. There was no significant transvalvular aortic gradient on pullback of the pigtail catheter. CORONARY ARTERIOGRAPHY The left main is normal. The left anterior descending is a tortuous vessel giving rise to a small tortuous diagonal. No disease is seen in the LAD system. The left circumflex is a large dominant vessel giving rise to a number of very small obtuse marginals. No disease is seen in the left circumflex system. The right coronary artery is a small nondominant vessel with no disease. There is a small ramus intermedius which has no disease. LEFT VENTRICULOGRAPHY Contrast injection of the left ventricle reveals moderate hypokinesis of the basal portions of the left ventricle. Ejection fraction is estimated at 55%. CONCLUSION 1. Angiographically normal coronary arteries. 2. Left dominant system. 3. Moderate hypokinesis of the basal portions of the left ventricle with overall preserved left ventricular systolic function. Ejection fraction is estimated at 55%. Kirill Islas MD [facility] /8:02 AM 8:27 AM MTDAden
[2017-07-16] MEDS: FAMOTIDINE 20 MG/2 ML VIAL IV PUSH SCH ×2 (09:00→20:49)
[2017-07-16] MEDS ORDERED: SODIUM CHLOR 0.9% 1000 ML INJ 1,000 ML IV SCH (09:00)
[2017-07-16] MEDS: ATORVASTATIN 80 MG TAB PO SCH (09:01)
[2017-07-16] MEDS: levETIRAcetam INJ 500 MG in SODIUM CHLORIDE 0.9% INJ 100 ML IV SCH ×2 (09:02→20:48)
[2017-07-16] MEDS: DOCUSATE SODIUM 50 MG/SENNA 8.6 MG TAB PO SCH ×2 (09:03→20:49)
[2017-07-16] MEDS: ASPIRIN 300 MG SUPP RECTAL SCH (09:03)
--- NOTE | 2017-07-16 09:59 | PD.CARD.PN ---
Subjective Subjective Remarks Still very altered, now s/p essentially normal cath Objective Medications Administered Medications Medications (Trade) Dose Ordered Sig/Kasandra Route PRN Reason Start Time Stop Time Status Last Admin Dose Admin Acetaminophen (Tylenol) 650 mg Q6H PRN PO PAIN 1-10 AND/OR FEVER >101F 07/14/17 20:30 07/15/17 20:51 Famotidine (Pepcid Inj) 20 mg Q12HR IV PUSH 07/14/17 21:00 07/16/17 09:00 Heparin Sodium (Porcine) (Heparin Inj) 5,000 units Q8H SQ 07/14/17 21:00 Future Hold 07/14/17 22:38 Senna/Docusate Sodium (Kaitlin-Colace) 1 tab BID PO 07/14/17 21:00 07/16/17 09:03 Levetriacetam 500 mg/Sodium Chloride 105 ml @ 420 mls/hr Q12HR IV 07/14/17 21:00 07/16/17 09:02 Piperacillin Sod/ Tazobactam Sod 100 ml @ 200 mls/hr Q6H IV 07/15/17 03:00 07/16/17 09:03 Potassium Chloride 100 ml @ 50 mls/hr Q2H PRN IV For Potassium 2.8 - 3.2 mEq/L 07/15/17 03:15 07/15/17 13:06 Sodium Phosphate 30 mmol/Sodium Chloride 250 ml @ 42 mls/hr UNSCH PRN IV For Phosphorus < 2.5 mg/dL 07/15/17 03:15 07/16/17 09:04 IV Flush (NS Flush) 2 ml BID IV FLUSH 07/15/17 09:00 07/16/17 07:39 Vancomycin HCl 1000 mg/Sodium Chloride 250 ml @ 250 mls/hr Q12H IV 07/15/17 16:00 07/16/17 03:47 Aspirin (Aspirin Supp) 300 mg DAILY RECTAL 07/15/17 10:00 07/16/17 09:03 Atorvastatin Calcium (Lipitor) 80 mg DAILY PO 07/15/17 21:00 07/16/17 09:01 Heparin Sodium/ Dextrose 250 ml @ 7.536 mls/ hr TITRATE PRN IV Coagulation management 07/15/17 10:15 07/15/17 11:11 Vital Signs / I&O Vital Signs Date Time Temp Pulse Resp B/P (MAP) Pulse Ox O2 Delivery O2 Flow Rate FiO2 07/16/17 06:00 80 07/16/17 04:00 90 07/16/17 04:00 100.0 90 19 107/74 (85) 99 07/16/17 00:00 80 07/16/17 00:00 100.6 80 23 92/64 (73) 95 07/15/17 22:00 85 07/15/17 20:49 99 07/15/17 20:00 82 07/15/17 20:00 101.3 82 24 93/69 (77) 98 07/15/17 18:00 83 07/15/17 16:00 80 07/15/17 16:00 100.8 76 20 85/63 (70) 99 07/15/17 14:00 80 07/15/17 12:00 100.0 82 20 85/67 (73) 100 07/15/17 12:00 82 07/15/17 10:00 83 I/O 07/15/17 07/15/17 07/15/17 07/16/17 07/16/17 07/16/17 07:00 15:00 23:00 07:00 15:00 23:00 Intake Total 920 ml 1814 ml 1508 ml Output Total 1380 ml 375 ml 350 ml Balance -460 ml 1439 ml 1158 ml Intake IV Total 920 ml 1814 ml 1508 ml Output Urine Total 1380 ml 375 ml 350 ml # Bowel Movements 1 0 Physical Exam GENERAL: This is a well-nourished, well-developed patient, in no apparent distress. CARDIOVASCULAR: Regular rate and rhythm without murmurs, gallops, or rubs. RESPIRATORY: Clear to auscultation. Breath sounds equal bilaterally. No wheezes , rales, or rhonchi. GASTROINTESTINAL: Abdomen soft, non-tender, nondistended. Normal active bowel sounds MUSCULOSKELETAL: Extremities without clubbing, cyanosis, or edema. NEURO: Alert & Oriented x4 to person, place, time, situation. Moves all ext x4 Laboratory Laboratory Tests Test 07/15/17 11:20 07/15/17 18:01 07/16/17 02:50 White Blood Count 16.3 TH/MM3 12.9 TH/MM3 Red Blood Count 3.72 MIL/MM3 3.06 MIL/MM3 Hemoglobin 13.2 GM/DL 10.9 GM/DL Hematocrit 40.0 % 33.6 % Mean Corpuscular Volume 107.8 FL 109.8 FL Mean Corpuscular Hemoglobin 35.4 PG 35.7 PG Mean Corpuscular Hemoglobin Concent 32.9 % 32.5 % Red Cell Distribution Width 13.9 % 13.9 % Platelet Count 138 TH/MM3 121 TH/MM3 Mean Platelet Volume 9.8 FL 10.0 FL Prothrombin Time 12.1 SEC Prothromb Time International Ratio 1.1 RATIO Activated Partial Thromboplast Time 26.2 SEC 31.8 SEC 41.1 SEC Troponin I 26.10 NG/ML 20.20 NG/ML Potassium Level 4.5 MEQ/L 3.6 MEQ/L Blood Urea Nitrogen 13 MG/DL Creatinine 0.76 MG/DL Random Glucose 95 MG/DL Total Protein 6.8 GM/DL Calcium Level 7.2 MG/DL Phosphorus Level 2.1 MG/DL Magnesium Level 1.5 MG/DL Sodium Level 143 MEQ/L Chloride Level 116 MEQ/L Carbon Dioxide Level 16.7 MEQ/L Anion Gap 10 MEQ/L Estimat Glomerular Filtration Rate 78 ML/MIN Protein Corrected Calcium 7.4 MG/DL Triglycerides Level 85 MG/DL Cholesterol Level 155 MG/DL LDL Cholesterol 58 MG/DL HDL Cholesterol 80.3 MG/DL Cholesterol/HDL Ratio 1.93 RATIO Imaging Last Impressions Brain MRI 07/15/17 0626 Signed Impressions: Service Date/Time: Saturday, July 15, 2017 08:49 - CONCLUSION: 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 No evidence of acute abnormality.. Shaina Canas MD Head CT 07/15/17 0000 Signed Impressions: Service Date/Time: Saturday, July 15, 2017 05:52 - CONCLUSION: 1. Stable right frontal encephalomalacia compared with July 14. No new findings. Juancho Reece MD Neck CTA 07/14/17 0000 Signed Impressions: Service Date/Time: Friday, July 14, 2017 17:26 - CONCLUSION: 1. No significant flow-limiting stenosis. There is 15%% stenosis of the right internal carotid artery origin and approximately 5-10%% stenosis of the left internal carotid artery origin secondary to calcified plaque extending from the distal bulb. 2. Patent bilateral vertebral arteries. Phoenix Ingram MD Head CTA 07/14/17 0000 Signed Impressions: Service Date/Time: Friday, July 14, 2017 17:26 - CONCLUSION: 1. Unremarkable CTA examination of the head. No evidence for large vessel occlusion, vascular malformation, or aneurysm. Phoenix Ingram MD Chest X-Ray 07/14/17 0000 Signed Impressions: Service Date/Time: Friday, July 14, 2017 18:30 - CONCLUSION: No infiltrates seen. Abdiaziz Jolley MD Assessment and Plan Problem List: (1) Elevated troponin ICD Codes: R74.8 - Abnormal levels of other serum enzymes Plan: Now s/p normal cath, preserved LVEF; ? sz Assessment and Plan Given no CAD and preserved LVEF; no further recommendations at this time, will sign off, please call with questions. Jermaine Peña MD Jul 16, 2017 09:59
[2017-07-16] MEDS ORDERED: LORazepam 2 MG TAB PO PRN (10:30)
[2017-07-16] MEDS ORDERED: LORazepam 2 MG/ML VIAL IV PUSH PRN ×5 (10:30→19:30)
[2017-07-16] MEDS ORDERED: LORazepam 1 MG TAB PO PRN (10:30)
[2017-07-16] MEDS ORDERED: FLUMAZENIL 0.5 MG/5 ML VIAL IV PUSH PRN (10:30)
--- NOTE | 2017-07-16 10:55 | HHI.CCPN ---
Subjective Remarks/Hospital Course Middle-aged female with history of seizures is brought in by ambulance from home for evaluation of possible stroke. She was last seen normal at 6 AM by her before he left for work. She arrived here at just after 5 PM with dense left hemiparesis, rightward gaze, right-sided neglect and aphasia. She is unable to provide any history. She does follow commands and moves her right arm and leg when asked to do so. She is fully awake and able to protect her airways. Due to timeframe she is not a candidate for TPA. Subjective: 07/15: Tmax 100.2. Repeat troponin level was noted to be significantly elevated. Patient was placed on atorvastatin and received aspirin. Concern for large CVA infarct with risk for hemorrhagic conversion heparin was deferred. The patient's labs reveal significant thrombocytopenia with a platelet count of 46, possible clumping of specimen repeat platelet count in process. Neurological status remains unchanged with dense left hemiplegia and left-sided neglect with noted aphasia. Repeat CT scan was obtained unremarkable no change. MRI pending this a.m.. 07/16: No acute events overnight. MRI was negative patient was instituted on heparin along with the aspirin and atorvastatin. The patient underwent cardiac catheterization this a.m. and was noted to have a normal coronary arteries and an ejection fraction of 55%. Heparin infusion was discontinued. The patient now currently beginning to have hallucinations, possibly secondary to anesthesia versus DTs ,will continue to monitor. CIWA protocol instituted. Patient continues to have left-sided hemeplegia, rehabilitation medicine has been consulted. Objective Vital Signs Date Time Temp Pulse Resp B/P (MAP) Pulse Ox O2 Delivery O2 Flow Rate FiO2 07/16/17 10:00 88 07/16/17 08:00 100.2 28 111/79 (90) 100 07/15/17 08:00 Nasal Cannula 2.00 Intake and Output 07/16/17 07/16/17 07/17/17 08:00 16:00 00:00 Intake Total 1508 ml Output Total 350 ml Balance 1158 ml Result Diagram: 07/16/17 0250 07/16/17 0250 Imaging Last Impressions Head CT 07/14/17 4277 Signed Impressions: Service Date/Time: Friday, July 14, 2017 17:22 - CONCLUSION: 1. Large area of encephalomalacia in the right frontal lobe suggests either old infarction or prior surgical defect. There is no evidence of prior craniotomy however. 2. Questionable hypodensity in the lateral right cortex, possibly beam hardening artifact. May consider performing an MRI of the brain with and without contrast for further characterization. Abdiaziz Jolley MD Objective Remarks GENERAL: Well-developed, well-nourished, awake, rightward gaze, follows commands right upper and lower extremity .Aphasic SKIN: Focused skin assessment warm/dry. No lacerations, abrasions, noted ecchymosis bilateral upper extremity. HEAD: Atraumatic. Normocephalic. EYES: Left pupil is 6 mm, round, reactive to light, right pupil is 5 mm, round, reactive to light. Rightward gaze. No scleral icterus. No injection or drainage. ENT: No nasal bleeding or discharge. Mucous membranes pink and moist. NECK: Trachea midline. No JVD. No nuchal rigidity. CARDIOVASCULAR: Normal rate ,regular rhythm. Telemetry sinus rhythm RESPIRATORY: No accessory muscle use. Clear to auscultation. Breath sounds equal bilaterally. GASTROINTESTINAL: Abdomen soft, non-tender, nondistended. Normoactive bowel sounds MUSCULOSKELETAL: No obvious deformities. No clubbing. No cyanosis. No edema. NEUROLOGICAL: Awake and alert. Dense left hemiplegia. Left hemespacial neglect Normal muscle strength and right arm and leg. Rightward gaze. Receptive and expressive aphasia. 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 Hypodensity lateral right cortex -07/[address] head-unchanged -CTA negative - 07/15 MRI -no acute ischemic infarct - Neurology following, Dr. Potts - Aspirin daily - Atorvastatin 80 mg/day -07/15 initial lab review platelet count 46, repeat CBC drawn platelet count 125 Leukocytosis - Fever - Blood cultures follow-up results - CXR clear - Broad-spectrum antibiotics - De-escalate per sensitivity Seizure disorder EtOH use disorder - Keppra BID -Seizure precautions -CIWA Protocol -Monitor signs of alcohol withdrawal -MVI, Thiamine , Folate Elevated troponins - Initial EKG not suggestive of acute coronary syndrome, repeat EKG 07/15 anterior septal changes suggestive of OH injury/ischemia - Likely from the stroke 14.6->18.7 - Cardiology consulted- 07/16 cardiac catheterization-normal coronary arteries, Ef 50% - 07/15 MRI-negative for acute infarc - Atorvastatin and aspirin. Beta chao held at this time secondary to low normal BP, systolic blood pressure mid 90's-100 -Obtain stat 2-D echo - Series of EKG and troponin-continued elevation in troponin thought to be possibly secondary to unwitnessed seizure prior to presentation to ED, not NSTEMI Transaminitis - Questionable history of alcohol use - Monitor trend Hypokalemia - Electrolyte replacement per ICU protocol DVT GI prophylaxis - Teds SCDs Out of bed to chair - Pepcid Dispo: Discussed with Dr. Peña, coronary arteries clear good LV function, heparin infusion discontinued. Patient previously on aspirin and and atorvastatin secondary to hyperlipidemia. Discussed with CONTRACT LAW SPECIALIST at bedside. Level 2 Patient progressing well tolerating a diet. Rehabilitation medicine consult initiated. Planned transfer to [facility] in a.. Physician Yarely Nguyen MD Jul 16, 2017 10:55
[2017-07-16] MEDS ORDERED: IOHEXOL 350 MG/ML 100 ML BTL (for Cath Lab) OTHER ONE (11:20)
[2017-07-16] MEDS ORDERED: CALCIUM GLUCONATE INJ 2 GM in SODIUM CHLORIDE 0.9% INJ 100 ML IV ONE (12:00)
[2017-07-16] MEDS: NICOTINE 14 MG/24 HR PATCH T-DERMAL SCH (12:20)
[2017-07-16] MEDS: FOLIC ACID 1 MG TAB PO SCH (12:20)
[2017-07-16] MEDS: MULTIVITAMINS/MINERALS THERAPEUTIC TAB PO SCH (12:20)
[2017-07-16] MEDS: THIAMINE HCL 100 MG TAB PO SCH (12:20)
--- NOTE | 2017-07-16 14:02 | PD.CONS ---
[facility] Service Rehabilitation Medicine Consult Requested By Dr. Potts Reason for Consult Comprehensive rehabilitation evaluation. Primary Care Physician Kayden Key MD History of Present Illness Janiya Hui is a 56-year-old female admitted [facility] 07/14/17 with left hemiparesis, right gaze preference and aphasia. CT showed large area encephalomalacia in the right frontal lobe and questionable hypodensity in the right cortex. Brain MRI 07/15/17 showed old right frontal infarct with encephalomalacia but no acute infarct. Cardiology consult notes non-STEMI. Cardiac 07/16/17 showed normal vessels with ejection fraction 55%. Review of Systems ROS Limitations: Clinical Condition, Speech Impaired Past Family Social History Allergies: Coded Allergies: Unable to Assess (Verified Allergy, Unknown, 07/14/17) Past Medical History Seizure disorder Head injury EtOH abuse Past Surgical History None listed Current Medications Current Medications Medications (Trade) Dose Ordered Sig/Kasandra Route Start Time Stop Time Status Last Admin (Tylenol) 650 mg Q6H PRN PO 07/14/17 20:30 07/15/17 20:51 (Morphine Inj) 2 mg Q2H PRN IV PUSH 07/14/17 20:30 (Pepcid Inj) 20 mg Q12HR IV PUSH 07/14/17 21:00 07/16/17 09:00 (Ativan Inj) 1 mg Q1H PRN IV PUSH 07/14/17 20:30 (Zofran Inj) 4 mg Q6H PRN IV PUSH 07/14/17 20:30 (Duoneb Neb) 1 ampule Q2HR NEB PRN INH 07/14/17 20:30 (Heparin Inj) 5,000 units Q8H SQ 07/14/17 21:00 Future Hold 07/14/17 22:38 Miscellaneous Information 1 Q361D XX 07/14/17 20:30 (Chlorhexidine 2% Cloth) 3 pack Taper DAILY@04 TOP 07/15/17 04:00 07/11/18 03:59 (Chlorhexidine 2% Cloth) 3 pack UNSCH PRN TOP 07/14/17 20:30 (Kaitlin-Colace) 1 tab BID PO 07/14/17 21:00 07/16/17 09:03 (Milk Of Magnesia Liq) 30 ml Q12H PRN PO 07/14/17 20:30 (Senokot) 17.2 mg Q12H PRN PO 07/14/17 20:30 (Dulcolax Supp) 10 mg DAILY PRN RECTAL 07/14/17 20:30 (Lactulose Liq) 30 ml DAILY PRN PO 07/14/17 20:30 Levetriacetam 500 mg/Sodium Chloride 105 ml @ 420 mls/hr Q12HR IV 07/14/17 21:00 07/16/17 09:02 Pharmacy Profile Note 0 ml @ 0 mls/hr UNSCH OTHER 07/15/17 03:00 Piperacillin Sod/ Tazobactam Sod 100 ml @ 200 mls/hr Q6H IV 07/15/17 03:00 07/16/17 09:03 Potassium Chloride 100 ml @ 50 mls/hr Q2H PRN IV 07/15/17 03:15 Potassium Chloride 100 ml @ 50 mls/hr Q2H PRN IV 07/15/17 03:15 07/15/17 13:06 (K-Lyte Cl Eff) 50 meq UNSCH PRN PO 07/15/17 03:15 Potassium Chloride 100 ml @ 25 mls/hr UNSCH PRN IV 07/15/17 03:15 Potassium Chloride 100 ml @ 50 mls/hr Q2H PRN IV 07/15/17 03:15 Magnesium Sulfate 4 gm/Sodium Chloride 100 ml @ 50 mls/hr UNSCH PRN IV 07/15/17 03:15 (Mag-Ox) 800 mg UNSCH PRN PO 07/15/17 03:15 Magnesium Sulfate 2 gm/Sodium Chloride 100 ml @ 50 mls/hr UNSCH PRN IV 07/15/17 03:15 (K-Phos) 2,000 mg Q4H PRN PO 07/15/17 03:15 Sodium Phosphate 30 mmol/Sodium Chloride 250 ml @ 42 mls/hr UNSCH PRN IV 07/15/17 03:15 07/16/17 09:04 (K-Phos) 2,000 mg UNSCH PRN PO/TUBE 07/15/17 03:15 Potassium Phosphate 30 mmol/ Sodium Chloride 260 ml @ 42 mls/hr UNSCH PRN IV 07/15/17 03:15 (NS Flush) 2 ml BID IV FLUSH 07/15/17 09:00 07/16/17 07:39 (NS Flush) 2 ml UNSCH PRN IV FLUSH 07/15/17 08:45 (NovoLOG SUPPLEMENTAL SCALE) 1 ACHS SQ 07/15/17 12:00 (D50w (Vial) Inj) 50 ml UNSCH PRN IV PUSH 07/15/17 08:45 (Glucagon Inj) 1 mg UNSCH PRN OTHER 07/15/17 08:45 Vancomycin HCl 1000 mg/Sodium Chloride 250 ml @ 250 mls/hr Q12H IV 07/15/17 16:00 07/16/17 03:47 Miscellaneous Information SPECIFIC LAB TO BE DRAWN:VANCOMYCIN TROUGH DATE TO... ONCE ONCE .XX 07/17/17 03:45 07/17/17 03:46 (Aspirin Supp) 300 mg DAILY RECTAL 07/15/17 10:00 07/16/17 09:03 (Lipitor) 80 mg DAILY PO 07/15/17 21:00 07/16/17 09:01 Heparin Sodium/ Dextrose 250 ml @ 7.536 mls/ hr TITRATE PRN IV 07/15/17 10:15 07/15/17 11:11 (Benadryl) 50 mg SOLAR RESOURCE ASSESSOR PO 07/15/17 12:30 07/19/17 12:29 (Valium) 10 mg SOLAR RESOURCE ASSESSOR PO 07/15/17 12:30 07/19/17 12:29 (Atropine Inj) 0.5 mg UNSCH PRN IV 07/16/17 08:15 Sodium Chloride 250 ml @ 0 mls/hr UNSCH X1 PRN IV 07/16/17 08:15 07/16/17 15:00 (Romazicon Inj) 0.2 mg Q1M PRN IV PUSH 07/16/17 10:30 (Ativan) 1 mg Q4H PRN PO 07/16/17 10:30 (Ativan Inj) 1 mg Q4H PRN IV PUSH 07/16/17 10:30 (Ativan) 2 mg Q2H PRN PO 07/16/17 10:30 07/16/17 11:26 (Ativan Inj) 2 mg Q2H PRN IV PUSH 07/16/17 10:30 (Ativan Inj) 2 mg Q1H PRN IV PUSH 07/16/17 10:30 (Ativan Inj) 2 mg Q15M PRN IV PUSH 07/16/17 10:30 (Habitrol 14 Mg Patch.24 Hr) 1 patch DAILY T-DERMAL 07/16/17 12:00 07/24/17 11:59 07/16/17 12:20 Miscellaneous Information 1 DAILY T-DERMAL 07/17/17 09:00 (Folate) 1 mg DAILY PO 07/16/17 12:00 07/21/17 11:59 07/16/17 12:20 (Vitamin B1) 100 mg DAILY PO 07/16/17 12:00 07/16/17 12:20 (Theragran M Tab) 1 tab DAILY PO 07/16/17 12:00 07/21/17 11:59 07/16/17 12:20 Family History Unable to obtain Social History Prior to admission patient lived in [place], [place] Exam I&O / VS Vital Signs Date Time Temp Pulse Resp B/P (MAP) Pulse Ox O2 Delivery O2 Flow Rate FiO2 07/16/17 12:00 98.9 87 23 99/67 (78) 100 07/16/17 12:00 82 07/16/17 11:59 97 Nasal Cannula 2.00 07/16/17 10:00 88 07/16/17 08:00 100.2 88 28 111/79 (90) 100 07/16/17 08:00 81 07/16/17 06:00 80 07/16/17 04:00 90 07/16/17 04:00 100.0 90 19 107/74 (85) 99 07/16/17 00:00 80 07/16/17 00:00 100.6 80 23 92/64 (73) 95 07/15/17 22:00 85 07/15/17 20:49 99 07/15/17 20:00 82 07/15/17 20:00 101.3 82 24 93/69 (77) 98 07/15/17 18:00 83 07/15/17 16:00 80 07/15/17 16:00 100.8 76 20 85/63 (70) 99 07/15/17 14:00 80 General: No acute distress Respiratory: Lungs CTA, Non-labored respirations, BS equal Gastrointestinal: Positive Bowel Sounds, Non-Distended, Non-Tender Cardiovascular: Normal rate, Regular Rhythm Musculoskeletal: ROM (within normal limits) Psychiatric: Cooperative Orientation: unable to asses Self, unable to asses Place, unable to asses Time , unable to asses Situation Neurologic: Pupils (PERRLA), EOM (tracks bilaterally right greater than left), Speech (nonverbal but follows commands) Motor: Right Upper Extremity (follows commands to move and strength is grossly intact), Left Upper Extremity (no spontaneous or voluntary movement), Right Lower Extremity (follows commands to move and grossly motor is intact), Left Lower Extremity (no spontaneous or voluntary movement) Sensory Unable to assess DTRs: Normal (1+ throughout) Babinski: Positive (down right; equivocal left) Clonus: Negative Assessment and Plan Diagnosis: (1) Stroke ICD Codes: I63.9 - Cerebral infarction, unspecified Status: Acute Qualifiers: CVA mechanism: unspecified Qualified Codes: I63.9 - Cerebral infarction, unspecified Assessment 1. Left hemiparesis/aphasia 2. Non-STEMI 3. Seizure disorder 4. History of head injury Plan 1. Speech therapy has evaluated swallow and patient tolerance. Diet with thin liquids. Would advance as tolerated. Communication/cognitive evaluation pending 2. Physical therapy to mobilize as cleared by medical/neurology 3. Occupational therapy for ADLs 4. SCDs in place for DVT prophylaxis 5. Reposition every 2 hours to protect skin and monitor for breakdown 6. Will follow in conjunction with case management regarding ongoing rehabilitation needs at discharge Thank you for this consult Aurora Swain MD Jul 16, 2017 14:02
[2017-07-16 14:39] LABS: APTT (PATIENT) 19.8 SEC (24.3-30.1)
[2017-07-16] MEDS: HEPARIN 25,000 UNITS-D5W 250 ML - PREMIX IV PRN (14:56)
[2017-07-16 17:09] LABS: HEMOGLOBIN A1b 1.2 %; HEMOGLOBIN Ao 86.6 %; HEMOGLOBIN F 0.5 %; HEMOGLOBIN LA1C 1.9 %; HEMOGLOBIN P3 3.4 %
--- NOTE | 2017-07-16 19:19 | HHI.PR ---
Review/Management Diagnosis Left hemiparesis and left neglect--no sign of acute cva on MRI. 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 Also with history of heavy ETOH abuse Active Medications Current Medications Medications (Trade) Dose Ordered Sig/Kasandra Route Start Time Stop Time Status Last Admin (Tylenol) 650 mg Q6H PRN PO 07/14/17 20:30 07/15/17 20:51 (Morphine Inj) 2 mg Q2H PRN IV PUSH 07/14/17 20:30 (Pepcid Inj) 20 mg Q12HR IV PUSH 07/14/17 21:00 07/16/17 09:00 (Ativan Inj) 1 mg Q1H PRN IV PUSH 07/14/17 20:30 (Zofran Inj) 4 mg Q6H PRN IV PUSH 07/14/17 20:30 (Duoneb Neb) 1 ampule Q2HR NEB PRN INH 07/14/17 20:30 (Heparin Inj) 5,000 units Q8H SQ 07/14/17 21:00 Future Hold 07/14/17 22:38 Miscellaneous Information 1 Q361D XX 07/14/17 20:30 (Chlorhexidine 2% Cloth) 3 pack Taper DAILY@04 TOP 07/15/17 04:00 07/11/18 03:59 (Chlorhexidine 2% Cloth) 3 pack UNSCH PRN TOP 07/14/17 20:30 (Kaitlin-Colace) 1 tab BID PO 07/14/17 21:00 07/16/17 09:03 (Milk Of Magnesia Liq) 30 ml Q12H PRN PO 07/14/17 20:30 (Senokot) 17.2 mg Q12H PRN PO 07/14/17 20:30 (Dulcolax Supp) 10 mg DAILY PRN RECTAL 07/14/17 20:30 (Lactulose Liq) 30 ml DAILY PRN PO 07/14/17 20:30 Levetriacetam 500 mg/Sodium Chloride 105 ml @ 420 mls/hr Q12HR IV 07/14/17 21:00 07/16/17 09:02 Pharmacy Profile Note 0 ml @ 0 mls/hr UNSCH OTHER 07/15/17 03:00 Piperacillin Sod/ Tazobactam Sod 100 ml @ 200 mls/hr Q6H IV 07/15/17 03:00 07/16/17 14:57 Potassium Chloride 100 ml @ 50 mls/hr Q2H PRN IV 07/15/17 03:15 Potassium Chloride 100 ml @ 50 mls/hr Q2H PRN IV 07/15/17 03:15 07/15/17 13:06 (K-Lyte Cl Eff) 50 meq UNSCH PRN PO 07/15/17 03:15 Potassium Chloride 100 ml @ 25 mls/hr UNSCH PRN IV 07/15/17 03:15 Potassium Chloride 100 ml @ 50 mls/hr Q2H PRN IV 07/15/17 03:15 Magnesium Sulfate 4 gm/Sodium Chloride 100 ml @ 50 mls/hr UNSCH PRN IV 07/15/17 03:15 (Mag-Ox) 800 mg UNSCH PRN PO 07/15/17 03:15 Magnesium Sulfate 2 gm/Sodium Chloride 100 ml @ 50 mls/hr UNSCH PRN IV 07/15/17 03:15 (K-Phos) 2,000 mg Q4H PRN PO 07/15/17 03:15 Sodium Phosphate 30 mmol/Sodium Chloride 250 ml @ 42 mls/hr UNSCH PRN IV 07/15/17 03:15 07/16/17 09:04 (K-Phos) 2,000 mg UNSCH PRN PO/TUBE 07/15/17 03:15 Potassium Phosphate 30 mmol/ Sodium Chloride 260 ml @ 42 mls/hr UNSCH PRN IV 07/15/17 03:15 (NS Flush) 2 ml BID IV FLUSH 07/15/17 09:00 07/16/17 07:39 (NS Flush) 2 ml UNSCH PRN IV FLUSH 07/15/17 08:45 (NovoLOG SUPPLEMENTAL SCALE) 1 ACHS SQ 07/15/17 12:00 (D50w (Vial) Inj) 50 ml UNSCH PRN IV PUSH 07/15/17 08:45 (Glucagon Inj) 1 mg UNSCH PRN OTHER 07/15/17 08:45 Vancomycin HCl 1000 mg/Sodium Chloride 250 ml @ 250 mls/hr Q12H IV 07/15/17 16:00 07/16/17 14:57 Miscellaneous Information SPECIFIC LAB TO BE DRAWN:VANCOMYCIN TROUGH DATE TO... ONCE ONCE .XX 07/17/17 03:45 07/17/17 03:46 (Aspirin Supp) 300 mg DAILY RECTAL 07/15/17 10:00 07/16/17 09:03 (Lipitor) 80 mg DAILY PO 07/15/17 21:00 07/16/17 09:01 (Benadryl) 50 mg CREDIT OPERATIONS SPECIALIST PO 07/15/17 12:30 07/19/17 12:29 (Valium) 10 mg CREDIT OPERATIONS SPECIALIST PO 07/15/17 12:30 07/19/17 12:29 (Atropine Inj) 0.5 mg UNSCH PRN IV 07/16/17 08:15 (Romazicon Inj) 0.2 mg Q1M PRN IV PUSH 07/16/17 10:30 (Ativan) 1 mg Q4H PRN PO 07/16/17 10:30 (Ativan Inj) 1 mg Q4H PRN IV PUSH 07/16/17 10:30 (Ativan) 2 mg Q2H PRN PO 07/16/17 10:30 07/16/17 11:26 (Ativan Inj) 2 mg Q2H PRN IV PUSH 07/16/17 10:30 (Ativan Inj) 2 mg Q1H PRN IV PUSH 07/16/17 10:30 (Ativan Inj) 2 mg Q15M PRN IV PUSH 07/16/17 10:30 (Habitrol 14 Mg Patch.24 Hr) 1 patch DAILY T-DERMAL 07/16/17 12:00 07/24/17 11:59 07/16/17 12:20 Miscellaneous Information 1 DAILY T-DERMAL 07/17/17 09:00 (Folate) 1 mg DAILY PO 07/16/17 12:00 07/21/17 11:59 07/16/17 12:20 (Vitamin B1) 100 mg DAILY PO 07/16/17 12:00 07/16/17 12:20 (Theragran M Tab) 1 tab DAILY PO 07/16/17 12:00 07/21/17 11:59 07/16/17 12:20 Heparin Sodium/ Dextrose 250 ml @ 9 mls/hr TITRATE PRN IV 07/16/17 14:45 07/16/17 14:56 Allergies Allergies Coded Allergies Unable to Assess (Verified Allergy, Unknown, 07/14/17) Exam I&O / VS 07/16/17 07/16/17 07/17/17 15:00 23:00 07:00 Intake Total 1586 ml Output Total 400 ml Balance 1186 ml Intake Oral 480 ml IV Total 1106 ml Output Urine Total 400 ml # Voids 1 Vital Signs Date Time Temp Pulse Resp B/P (MAP) Pulse Ox O2 Delivery O2 Flow Rate FiO2 07/16/17 18:00 81 07/16/17 16:00 98.6 85 22 104/72 (83) 96 07/16/17 16:00 85 07/16/17 14:00 84 07/16/17 12:00 98.9 87 23 99/67 (78) 100 07/16/17 12:00 82 07/16/17 11:59 97 Nasal Cannula 2.00 07/16/17 10:00 88 07/16/17 08:00 100.2 88 28 111/79 (90) 100 07/16/17 08:00 81 07/16/17 06:00 80 07/16/17 04:00 90 07/16/17 04:00 100.0 90 19 107/74 (85) 99 07/16/17 00:00 80 07/16/17 00:00 100.6 80 23 92/64 (73) 95 07/15/17 22:00 85 07/15/17 20:49 99 07/15/17 20:00 82 07/15/17 20:00 101.3 82 24 93/69 (77) 98 Respiratory: Lungs CTA, Non-labored respirations, BS equal Cardiology: Normal rate, Regular Rhythm Musculoskeletal: ROM (within normal limits) Exam Comments alert. Orients preferentialy to right but orients to left at times PERRL EOMI--no longer with right gaze left hemiparesis--0/5 LUE, 1/5 LLE Objective Radiology Results MRI brain--old right frontal stroke. No sign of acute cva CTA neck--no significant carotid stenosis CTA brain-- no LVO Micro and Labs Laboratory Tests Test 07/16/17 02:50 07/16/17 14:10 White Blood Count 12.9 Red Blood Count 3.06 Hemoglobin 10.9 Hematocrit 33.6 Mean Corpuscular Volume 109.8 Mean Corpuscular Hemoglobin 35.7 Mean Corpuscular Hemoglobin Concent 32.5 Red Cell Distribution Width 13.9 Platelet Count 121 Mean Platelet Volume 10.0 Activated Partial Thromboplast Time 41.1 19.8 Blood Urea Nitrogen 13 Creatinine 0.76 Random Glucose 95 Total Protein 6.8 Calcium Level 7.2 Phosphorus Level 2.1 Magnesium Level 1.5 Sodium Level 143 Potassium Level 3.6 Chloride Level 116 Carbon Dioxide Level 16.7 Anion Gap 10 Estimat Glomerular Filtration Rate 78 Protein Corrected Calcium 7.4 Triglycerides Level 85 Cholesterol Level 155 LDL Cholesterol 58 HDL Cholesterol 80.3 Cholesterol/HDL Ratio 1.93 Date/Time Source Procedure Growth Status 07/14/17 17:35 Blood Peripheral Aerobic Blood Culture - Preliminary NO GROWTH IN 2 DAYS Resulted 07/14/17 17:35 Blood Peripheral Anaerobic Blood Culture - Preliminary NO GROWTH IN 2 DAYS Resulted 07/14/17 17:36 Urine Clean Catch Urine Culture - Final Lactobacillus Species Complete Kayden Potts PhD Jul 16, 2017 19:19
[2017-07-16] MEDS: THIAMINE HCL 200 MG/2 ML VIAL IM SCH (21:19)
[2017-07-16 22:55] LABS: APTT (PATIENT) 28.5 SEC (24.3-30.1)
[2017-07-17] VITALS (15 sets, daily range): BP systolic 92–119; BP diastolic 66–82; PULSE 62–96; RESP 20–24; TEMP 98.3–99.1; O2SAT 95–100
[2017-07-17] MEDS: HEPARIN 25,000 UNITS-D5W 250 ML - PREMIX IV PRN ×2 (00:36→00:38)
[2017-07-17] MEDS: levETIRAcetam INJ 500 MG in SODIUM CHLORIDE 0.9% INJ 100 ML IV SCH ×5 (00:54→23:39)
[2017-07-17] MEDS ORDERED: PHARMACY ORDERED LAB ONE (03:45)
[2017-07-17] MEDS: CHLORHEXIDINE GLUCONATE 2 % 1 PACK (2 CLOTHS) TOP SCH (04:00)
[2017-07-17 04:12] LABS: HEMATOCRIT 30.7 % (35.0-46.0); MEAN CELL VOLUME 109.1 FL (80.0-100.0); MEAN CORPUSCULAR HEMOGLOBIN 36.2 PG (27.0-34.0); MEAN CORPUSCULAR HGB CONC 33.2 % (32.0-36.0); PLATELET COUNT 125 TH/MM3 (150-450); RED BLOOD COUNT 2.82 MIL/MM3 (4.00-5.30); RED CELL DISTRIBUTION WIDTH 13.7 % (11.6-17.2); REVIEW FLAG FINAL; WHITE BLOOD COUNT 9.3 TH/MM3 (4.0-11.0)
[2017-07-17 04:19] LABS: APTT (PATIENT) 35.4 SEC (24.3-30.1)
[2017-07-17] MEDS: PIPERACIL-TAZO 4.5 GM PREMIX 100 ML IV SCH ×4 (04:27→20:42)
[2017-07-17] MEDS: VANCOMYCIN 1,000 MG/NS 250 ML IV SCH ×2 (04:28)
[2017-07-17 04:37] LABS: BICARBONATE 17.3 MEQ/L (21.0-32.0); MAGNESIUM 1.4 MG/DL (1.5-2.5); VANCOMYCIN TROUGH 20.9 MCG/ML (5.0-10.0)
[2017-07-17 04:38] LABS: POTASSIUM 2.8 MEQ/L (3.5-5.1)
[2017-07-17] MEDS: POTASSIUM CHLOR 20 MEQ PREMIX 100 ML IV PRN ×4 (05:00→13:47)
[2017-07-17] MEDS: INSULIN ASPART SUPPLEMENTAL SCALE SQ SCH ×4 (08:00→20:42)
[2017-07-17] MEDS: THIAMINE HCL 200 MG/2 ML VIAL IM SCH (09:00)
[2017-07-17] MEDS: FOLIC ACID 1 MG TAB PO SCH (09:43)
[2017-07-17] MEDS: ATORVASTATIN 80 MG TAB PO SCH (09:44)
[2017-07-17] MEDS: THIAMINE HCL 100 MG TAB PO SCH ×2 (09:44→10:33)
[2017-07-17] MEDS: MULTIVITAMINS/MINERALS THERAPEUTIC TAB PO SCH (09:44)
[2017-07-17] MEDS: ASPIRIN 300 MG SUPP RECTAL SCH (09:44)
[2017-07-17] MEDS: DOCUSATE SODIUM 50 MG/SENNA 8.6 MG TAB PO SCH ×2 (09:44→20:42)
[2017-07-17] MEDS: FAMOTIDINE 20 MG/2 ML VIAL IV PUSH SCH ×2 (09:45→20:42)
[2017-07-17] MEDS: SODIUM CHLORIDE 0.9% FLUSH 5 ML FLUSH IV FLUSH SCH ×2 (09:45→20:42)
[2017-07-17] MEDS: REMOVE OLD PATCH T-DERMAL SCH (09:59)
[2017-07-17] MEDS: NICOTINE 14 MG/24 HR PATCH T-DERMAL SCH (09:59)
--- NOTE | 2017-07-17 11:33 | HHI.PR ---
Subjective Remarks pt getting eeg joking Objective Vitals left facial droop/hemiplegia heart reg lung cta abd s/nt ext o edema Vital Signs Date Time Temp Pulse Resp B/P (MAP) Pulse Ox O2 Delivery O2 Flow Rate FiO2 07/17/17 09:30 96 21 07/17/17 06:00 91 07/17/17 05:00 98.3 73 24 98/66 (77) 97 07/17/17 04:00 96 07/17/17 02:00 96 07/17/17 00:00 98.6 90 20 119/82 (94) 99 07/17/17 00:00 90 07/16/17 22:00 88 07/16/17 20:00 92 07/16/17 20:00 98.4 92 20 108/76 (87) 97 07/16/17 18:00 81 07/16/17 16:00 98.6 85 22 104/72 (83) 96 07/16/17 16:00 85 07/16/17 14:00 84 07/16/17 12:00 98.9 87 23 99/67 (78) 100 07/16/17 12:00 82 07/16/17 11:59 97 Nasal Cannula 2.00 Result Diagram: 07/17/17 0344 07/17/17 0344 Date of Insertion: Jul 14, 2017 Date of Removal: Jul 16, 2017 A/P Problem List: (1) Hemiparesis ICD Codes: G81.90 - Hemiplegia, unspecified affecting unspecified side Plan: Left sided hemiplegia...no cva on imaging..?sz considered Old cerebral infarct fever/leukocytosis elevated troponin with nml [facility] hypokalemia/hyopomag - 07/14 CT head -encephalomalacia right frontal lobe, old infarct ,or prior surgical defect but no craniotomy scar. Hypodensity lateral right cortex -07/[address] head-unchanged -CTA negative - 07/15 MRI -no acute ischemic infarct neurology following. pt on heparin and iv keppra eeg today abx initiated in ICU. monitor replace k and mg today PT and supportive care dvt prophylaxis. donita diet PT daily. Jono Francois MD Jul 17, 2017 11:33
[2017-07-17 14:35] LABS: APTT (PATIENT) 42.7 SEC (24.3-30.1)
--- NOTE | 2017-07-17 15:23 | MG ---
cc: TRINA DIAS MD Lab No: [id number] Date: 07/17/2017 Age: 56 Sex: F Race: DATE OF : 1960 56-year-old with history of hemiparesis history of seizures. Generalized slowing appreciated with alot of myogenic artifact, frontal sharp waves with phase reversal occurring in the left frontal region, 20-70 microvolts right frontal sharp waves. Single EKG showing sinus rhythm. No driving with photic stimulation. INTERPRETATION Right frontal sharp activity and suggestion of cortical irritation with underlying moderate encephalopathy. Clinical correlation. Trina Dias MD MG/ /3:12 PM /3:17 PM
[2017-07-17 19:21] LABS: APTT (PATIENT) 48.6 SEC (24.3-30.1)
[2017-07-17] MEDS ORDERED: VANCOMYCIN 1,000 MG/NS 250 ML IV SCH ×2 (21:00)
--- NOTE | 2017-07-17 21:35 | HHI.PR ---
Review/Management Diagnosis Left hemiparesis and left neglect--no sign of acute cva on MRI. Probable right hemisphere seizure with post ictal Todds Paralysis Plan continue [facility] Diagnosis/Plan: Subjective Subjective Comments No acute events reported moving left side more Active Medications Current Medications Medications (Trade) Dose Ordered Sig/Kasandra Route Start Time Stop Time Status Last Admin (Tylenol) 650 mg Q6H PRN PO 07/14/17 20:30 07/15/17 20:51 (Morphine Inj) 2 mg Q2H PRN IV PUSH 07/14/17 20:30 (Pepcid Inj) 20 mg Q12HR IV PUSH 07/14/17 21:00 07/17/17 20:42 (Ativan Inj) 1 mg Q1H PRN IV PUSH 07/14/17 20:30 (Zofran Inj) 4 mg Q6H PRN IV PUSH 07/14/17 20:30 (Duoneb Neb) 1 ampule Q2HR NEB PRN INH 07/14/17 20:30 (Heparin Inj) 5,000 units Q8H SQ 07/14/17 21:00 Future Hold 07/14/17 22:38 Miscellaneous Information 1 Q361D XX 07/14/17 20:30 (Chlorhexidine 2% Cloth) 3 pack Taper DAILY@04 TOP 07/15/17 04:00 07/11/18 03:59 07/17/17 04:00 (Chlorhexidine 2% Cloth) 3 pack UNSCH PRN TOP 07/14/17 20:30 (Kaitlin-Colace) 1 tab BID PO 07/14/17 21:00 07/17/17 09:44 (Milk Of Magnesia Liq) 30 ml Q12H PRN PO 07/14/17 20:30 (Senokot) 17.2 mg Q12H PRN PO 07/14/17 20:30 (Dulcolax Supp) 10 mg DAILY PRN RECTAL 07/14/17 20:30 (Lactulose Liq) 30 ml DAILY PRN PO 07/14/17 20:30 Pharmacy Profile Note 0 ml @ 0 mls/hr UNSCH OTHER 07/15/17 03:00 Piperacillin Sod/ Tazobactam Sod 100 ml @ 200 mls/hr Q6H IV 07/15/17 03:00 07/17/17 20:42 Potassium Chloride 100 ml @ 50 mls/hr Q2H PRN IV 07/15/17 03:15 Potassium Chloride 100 ml @ 50 mls/hr Q2H PRN IV 07/15/17 03:15 07/17/17 13:47 (K-Lyte Cl Eff) 50 meq UNSCH PRN PO 07/15/17 03:15 Potassium Chloride 100 ml @ 25 mls/hr UNSCH PRN IV 07/15/17 03:15 Potassium Chloride 100 ml @ 50 mls/hr Q2H PRN IV 07/15/17 03:15 Magnesium Sulfate 4 gm/Sodium Chloride 100 ml @ 50 mls/hr UNSCH PRN IV 07/15/17 03:15 (Mag-Ox) 800 mg UNSCH PRN PO 07/15/17 03:15 Magnesium Sulfate 2 gm/Sodium Chloride 100 ml @ 50 mls/hr UNSCH PRN IV 07/15/17 03:15 (K-Phos) 2,000 mg Q4H PRN PO 07/15/17 03:15 Sodium Phosphate 30 mmol/Sodium Chloride 250 ml @ 42 mls/hr UNSCH PRN IV 07/15/17 03:15 07/16/17 09:04 (K-Phos) 2,000 mg UNSCH PRN PO/TUBE 07/15/17 03:15 Potassium Phosphate 30 mmol/ Sodium Chloride 260 ml @ 42 mls/hr UNSCH PRN IV 07/15/17 03:15 (NS Flush) 2 ml BID IV FLUSH 07/15/17 09:00 07/17/17 09:45 (NS Flush) 2 ml UNSCH PRN IV FLUSH 07/15/17 08:45 (NovoLOG SUPPLEMENTAL SCALE) 1 ACHS SQ 07/15/17 12:00 (D50w (Vial) Inj) 50 ml UNSCH PRN IV PUSH 07/15/17 08:45 (Glucagon Inj) 1 mg UNSCH PRN OTHER 07/15/17 08:45 (Aspirin Supp) 300 mg DAILY RECTAL 07/15/17 10:00 07/17/17 09:44 (Lipitor) 80 mg DAILY PO 07/15/17 21:00 07/17/17 09:44 (Benadryl) 50 mg VP COMMUNICATIONS PO 07/15/17 12:30 07/19/17 12:29 (Valium) 10 mg VP COMMUNICATIONS PO 07/15/17 12:30 07/19/17 12:29 (Atropine Inj) 0.5 mg UNSCH PRN IV 07/16/17 08:15 (Romazicon Inj) 0.2 mg Q1M PRN IV PUSH 07/16/17 10:30 (Ativan) 1 mg Q4H PRN PO 07/16/17 10:30 (Ativan Inj) 1 mg Q4H PRN IV PUSH 07/16/17 10:30 (Ativan) 2 mg Q2H PRN PO 07/16/17 10:30 07/16/17 11:26 (Ativan Inj) 2 mg Q2H PRN IV PUSH 07/16/17 10:30 (Ativan Inj) 2 mg Q1H PRN IV PUSH 07/16/17 10:30 (Ativan Inj) 2 mg Q15M PRN IV PUSH 07/16/17 10:30 (Habitrol 14 Mg Patch.24 Hr) 1 patch DAILY T-DERMAL 07/16/17 12:00 07/24/17 11:59 07/17/17 09:59 Miscellaneous Information 1 DAILY T-DERMAL 07/17/17 09:00 07/17/17 09:59 (Folate) 1 mg DAILY PO 07/16/17 12:00 07/21/17 11:59 07/17/17 09:43 (Vitamin B1) 100 mg DAILY PO 07/16/17 12:00 07/17/17 10:33 (Theragran M Tab) 1 tab DAILY PO 07/16/17 12:00 07/21/17 11:59 07/17/17 09:44 Heparin Sodium/ Dextrose 250 ml @ 9 mls/hr TITRATE PRN IV 07/16/17 14:45 07/17/17 00:38 Levetriacetam 500 mg/Sodium Chloride 105 ml @ 420 mls/hr Q6HR IV 07/16/17 19:30 07/17/17 18:42 (Ativan Inj) 1 mg Q4H PRN IV PUSH 07/16/17 19:30 Vancomycin HCl 1000 mg/Sodium Chloride 250 ml @ 250 mls/hr Q18H IV 07/17/17 21:00 07/17/17 21:20 Miscellaneous Information SPECIFIC LAB TO BE DRAWN:VANCOMYCIN TROUGH DATE TO... ONCE ONCE .XX 07/19/17 08:45 07/19/17 08:46 (Pneumovax-23 Inj) 25 mcg ONCE ONCE IM 07/18/17 10:00 07/18/17 10:01 Allergies Allergies Coded Allergies Unable to Assess (Verified Allergy, Unknown, 07/14/17) Exam I&O / VS 07/17/17 07/17/17 07/18/17 15:00 23:00 07:00 Intake Total 1265 ml 525 ml Balance 1265 ml 525 ml Intake Oral 60 ml 120 ml IV Total 1205 ml 405 ml # Voids 3 5 # Bowel Movements 2 2 Vital Signs Date Time Temp Pulse Resp B/P (MAP) Pulse Ox O2 Delivery O2 Flow Rate FiO2 07/17/17 20:26 100 07/17/17 20:00 62 07/17/17 18:00 69 07/17/17 16:00 74 07/17/17 16:00 98.3 74 20 97/73 (81) 100 07/17/17 14:00 78 07/17/17 12:00 98.3 73 20 92/67 (75) 99 07/17/17 12:00 72 07/17/17 10:00 66 07/17/17 09:30 96 21 07/17/17 08:00 98.6 88 20 111/80 (90) 95 07/17/17 08:00 88 07/17/17 06:00 91 07/17/17 05:00 98.3 73 24 98/66 (77) 97 07/17/17 04:00 96 07/17/17 02:00 96 07/17/17 00:00 98.6 90 20 119/82 (94) 99 07/17/17 00:00 90 07/16/17 22:00 88 Respiratory: Lungs CTA, Non-labored respirations, BS equal Cardiology: Normal rate, Regular Rhythm Musculoskeletal: ROM (within normal limits) Exam Comments alert. no longer with left neglect PERRL EOMI--no longer with right gaze left hemiparesis--3/5 LUE, 3/5 LLE Objective Micro and Labs Laboratory Tests Test 07/16/17 21:45 07/17/17 03:44 07/17/17 12:55 07/17/17 18:27 Activated Partial Thromboplast Time 28.5 35.4 42.7 48.6 White Blood Count 9.3 Red Blood Count 2.82 Hemoglobin 10.2 Hematocrit 30.7 Mean Corpuscular Volume 109.1 Mean Corpuscular Hemoglobin 36.2 Mean Corpuscular Hemoglobin Concent 33.2 Red Cell Distribution Width 13.7 Platelet Count 125 Mean Platelet Volume 9.4 Blood Urea Nitrogen 11 Creatinine 0.76 Random Glucose 80 Calcium Level 7.6 Phosphorus Level 2.7 Magnesium Level 1.4 Sodium Level 146 Potassium Level 2.8 Chloride Level 118 Carbon Dioxide Level 17.3 Anion Gap 11 Estimat Glomerular Filtration Rate 78 Vancomycin Level Trough 20.9 Date/Time Source Procedure Growth Status 07/14/17 17:35 Blood Peripheral Aerobic Blood Culture - Preliminary NO GROWTH IN 3 DAYS Resulted 07/14/17 17:35 Blood Peripheral Anaerobic Blood Culture - Preliminary NO GROWTH IN 3 DAYS Resulted 07/14/17 17:36 Urine Clean Catch Urine Culture - Final Lactobacillus Species Complete Diagnostic Tests EEG--right frontal sharps/epileptiform activity Kayden Potts PhD Jul 17, 2017 21:35
[2017-07-18] VITALS (11 sets, daily range): BP systolic 101–113; BP diastolic 67–81; PULSE 61–80; RESP 16–26; TEMP 98–98.8; O2SAT 97–99
[2017-07-18] MEDS: HEPARIN 25,000 UNITS-D5W 250 ML - PREMIX IV PRN (01:16)
[2017-07-18] MEDS: CHLORHEXIDINE GLUCONATE 2 % 1 PACK (2 CLOTHS) TOP SCH (03:17)
[2017-07-18] MEDS: PIPERACIL-TAZO 4.5 GM PREMIX 100 ML IV SCH ×4 (03:17→20:59)
[2017-07-18] MEDS: levETIRAcetam INJ 500 MG in SODIUM CHLORIDE 0.9% INJ 100 ML IV SCH ×3 (05:15→17:32)
[2017-07-18 05:39] LABS: APTT (PATIENT) 44.4 SEC (24.3-30.1)
[2017-07-18 05:57] LABS: BICARBONATE 16.4 MEQ/L (21.0-32.0)
[2017-07-18 06:03] LABS: POTASSIUM 2.9 MEQ/L (3.5-5.1)
[2017-07-18] MEDS: POTASSIUM CHLOR 20 MEQ PREMIX 100 ML IV PRN ×2 (06:10→08:33)
[2017-07-18 07:00] LABS: AUTOMATED NEUTROPHIL # 3.7 TH/MM3 (1.8-7.7); BASOPHIL % 0.4 % (0.0-2.0); EOSINOPHIL % 0.8 % (0.0-4.0); HEMATOCRIT 29.6 % (35.0-46.0); LYMPH % 20.6 % (9.0-44.0); LYMPHOCYTE # 1.1 TH/MM3 (1.0-4.8); MEAN CELL VOLUME 107.9 FL (80.0-100.0); MEAN CORPUSCULAR HEMOGLOBIN 35.1 PG (27.0-34.0); MEAN CORPUSCULAR HGB CONC 32.6 % (32.0-36.0); NEUT % 68.2 % (16.0-70.0); RED BLOOD COUNT 2.74 MIL/MM3 (4.00-5.30); WHITE BLOOD COUNT 5.4 TH/MM3 (4.0-11.0)
[2017-07-18 07:40] LABS: HEMO FLAGS AUTO DIFF
[2017-07-18 07:44] LABS: PLATELET COUNT 86 TH/MM3 (150-450)
[2017-07-18 07:45] LABS: PLATELET ESTIMATE SMEAR LOW (NORMAL); PLATELET MORPHOLOGY ENLARGED (NORMAL); SCAN/DIFF AUTO DIFF CONFIRMED
[2017-07-18] MEDS: INSULIN ASPART SUPPLEMENTAL SCALE SQ SCH ×4 (08:00→21:00)
[2017-07-18] MEDS: DOCUSATE SODIUM 50 MG/SENNA 8.6 MG TAB PO SCH ×2 (08:30→20:56)
[2017-07-18] MEDS: THIAMINE HCL 100 MG TAB PO SCH (08:31)
[2017-07-18] MEDS: FOLIC ACID 1 MG TAB PO SCH (08:31)
[2017-07-18] MEDS: FAMOTIDINE 20 MG/2 ML VIAL IV PUSH SCH (08:31)
[2017-07-18] MEDS: ATORVASTATIN 80 MG TAB PO SCH (08:31)
[2017-07-18] MEDS: NICOTINE 14 MG/24 HR PATCH T-DERMAL SCH (08:31)
[2017-07-18] MEDS: SODIUM CHLORIDE 0.9% FLUSH 5 ML FLUSH IV FLUSH SCH ×2 (08:31→21:12)
[2017-07-18] MEDS: MULTIVITAMINS/MINERALS THERAPEUTIC TAB PO SCH (08:31)
[2017-07-18] MEDS: ASPIRIN 300 MG SUPP RECTAL SCH (08:32)
[2017-07-18] MEDS: REMOVE OLD PATCH T-DERMAL SCH (08:32)
--- NOTE | 2017-07-18 08:54 | HHI.PR ---
Subjective Remarks left side getting stronger. donita food Objective Vitals left facial droop improved left ue left le paralysis improving heart reg lung cta abd s/nt ext no edema Vital Signs Date Time Temp Pulse Resp B/P (MAP) Pulse Ox O2 Delivery O2 Flow Rate FiO2 07/18/17 06:00 66 07/18/17 04:00 66 07/18/17 04:00 98.4 66 22 105/71 (82) 99 07/18/17 02:00 61 07/18/17 00:00 72 07/18/17 00:00 98.8 76 20 110/79 (89) 99 07/17/17 22:00 72 07/17/17 20:26 100 07/17/17 20:00 62 07/17/17 20:00 99.1 62 21 100/69 (79) 100 07/17/17 18:00 69 07/17/17 16:00 74 07/17/17 16:00 98.3 74 20 97/73 (81) 100 07/17/17 14:00 78 07/17/17 12:00 98.3 73 20 92/67 (75) 99 07/17/17 12:00 72 07/17/17 10:00 66 07/17/17 09:30 96 21 Result Diagram: 07/18/17 0459 07/18/17 0459 Date of Insertion: Jul 14, 2017 Date of Removal: Jul 16, 2017 A/P Problem List: (1) Hemiparesis ICD Codes: G81.90 - Hemiplegia, unspecified affecting unspecified side Status: Acute Plan: Left sided hemiplegia...no cva on imaging..sz and todds paralysis is leading dx Old cerebral infarct fever/leukocytosis. better elevated troponin with nml [facility] hypokalemia/hyopomag - 07/14 CT head -encephalomalacia right frontal lobe, old infarct ,or prior surgical defect but no craniotomy scar. Hypodensity lateral right cortex -07/[address] head-unchanged -CTA negative - 07/15 MRI -no acute ischemic infarct neurology following. heparin stopped. asa. iv keppr move to med/surg eeg noted with sharp waves right frontal area abx initiated in ICU. monitor and deescalate replace k and mg today. recheck PT and supportive care dvt prophylaxis. donita Jono Florez MD Jul 18, 2017 08:54
[2017-07-18] MEDS: ASPIRIN 81 MG CHEW TAB CHEW SCH (09:44)
[2017-07-18] MEDS ORDERED: PNEUMOCOCCAL POLYVALENT INJ 25 MCG/0.5 ML SYR IM ONE (10:00)
[2017-07-18] MEDS: POTASSIUM CHLOR 20 MEQ PREMIX 100 ML IV SCH ×2 (15:59→17:32)
--- NOTE | 2017-07-18 17:44 | HHI.PR ---
Subjective Subjective Comments Patient awake and alert. Denies any pain complaints Allergies: Coded Allergies: Unable to Assess (Verified Allergy, Unknown, 07/14/17) Review of Systems All other ROS: ROS reviewed as documented in chart Exam I&O / VS Vital Signs Date Time Temp Pulse Resp B/P (MAP) Pulse Ox O2 Delivery O2 Flow Rate FiO2 07/18/17 16:00 98.0 64 18 101/67 (78) 99 07/18/17 16:00 80 07/18/17 14:00 66 07/18/17 12:00 98.0 72 18 102/72 (82) 99 07/18/17 12:00 72 07/18/17 10:00 76 07/18/17 08:00 68 07/18/17 08:00 98.2 68 26 113/81 (92) 99 07/18/17 06:00 66 07/18/17 04:00 66 07/18/17 04:00 98.4 66 22 105/71 (82) 99 07/18/17 02:00 61 07/18/17 00:00 72 07/18/17 00:00 98.8 76 20 110/79 (89) 99 07/17/17 22:00 72 07/17/17 20:26 100 07/17/17 20:00 62 07/17/17 20:00 99.1 62 21 100/69 (79) 100 07/17/17 18:00 69 General: No acute distress Cardiovascular: Normal rate Musculoskeletal: ROM (within normal limits) Psychiatric: Cooperative Orientation: oriented to Self, oriented to Place, oriented to Situation, disoriented to Time Neurologic: Pupils (PERRLA), EOM (right gaze preference), Speech (verbalizing) Motor: Right Upper Extremity (5/5), Left Upper Extremity (34/5), Right Lower Extremity (5/5), Left Lower Extremity (4/5) Clonus: Negative Objective Micro and Labs Laboratory Tests Test 07/17/17 18:27 07/18/17 04:59 Activated Partial Thromboplast Time 48.6 44.4 White Blood Count 5.4 Red Blood Count 2.74 Hemoglobin 9.6 Hematocrit 29.6 Mean Corpuscular Volume 107.9 Mean Corpuscular Hemoglobin 35.1 Mean Corpuscular Hemoglobin Concent 32.6 Red Cell Distribution Width 14.0 Platelet Count 86 Mean Platelet Volume 10.9 Neutrophils (%) (Auto) 68.2 Lymphocytes (%) (Auto) 20.6 Monocytes (%) (Auto) 10.0 Eosinophils (%) (Auto) 0.8 Basophils (%) (Auto) 0.4 Neutrophils # (Auto) 3.7 Lymphocytes # (Auto) 1.1 Monocytes # (Auto) 0.5 Eosinophils # (Auto) 0.0 Basophils # (Auto) 0.0 CBC Comment AUTO DIFF Differential Comment AUTO DIFF CONFIRMED Platelet Estimate LOW Platelet Morphology Comment ENLARGED Blood Urea Nitrogen 6 Creatinine 0.64 Random Glucose 83 Calcium Level 7.5 Sodium Level 145 Potassium Level 2.9 Chloride Level 118 Carbon Dioxide Level 16.4 Anion Gap 11 Estimat Glomerular Filtration Rate 96 Date/Time Source Procedure Growth Status 07/14/17 17:35 Blood Peripheral Aerobic Blood Culture - Preliminary NO GROWTH IN 4 DAYS Resulted 07/14/17 17:35 Blood Peripheral Anaerobic Blood Culture - Preliminary NO GROWTH IN 4 DAYS Resulted 07/14/17 17:36 Urine Clean Catch Urine Culture - Final Lactobacillus Species Complete Assessment and Plan Diagnosis: (1) Stroke ICD Codes: I63.9 - Cerebral infarction, unspecified Status: Acute Qualifiers: CVA mechanism: unspecified Qualified Codes: I63.9 - Cerebral infarction, unspecified Assessment 1. Left hemiparesis/aphasia: Clinically improving 2. Non-STEMI 3. Seizure disorder 4. History of head injury Plan 1. Speech therapy has evaluated swallow and patient tolerating soft diet with thin liquids. Cognition being addressed. 2. Physical therapy mobilizing and now minimal assist for transfers and mod assist of 2 to move from bed to chair 3. Occupational therapy for ADLs 4. SCDs in place for DVT prophylaxis 5. Will follow in conjunction with case management regarding ongoing rehabilitation needs at discharge. Anticipate patient will need inpatient care 6. Will follow-up hospitalized and at discharge Aurora Swain MD Jul 18, 2017 17:44
[2017-07-19] VITALS (8 sets, daily range): BP systolic 123–184; BP diastolic 69–117; PULSE 76–95; RESP 16–20; TEMP 97.9–99.3; O2SAT 96–99
[2017-07-19] MEDS: levETIRAcetam INJ 500 MG in SODIUM CHLORIDE 0.9% INJ 100 ML IV SCH ×5 (00:53→23:53)
[2017-07-19] MEDS: CHLORHEXIDINE GLUCONATE 2 % 1 PACK (2 CLOTHS) TOP SCH (03:22)
[2017-07-19] MEDS: PIPERACIL-TAZO 4.5 GM PREMIX 100 ML IV SCH ×4 (03:29→20:37)
[2017-07-19] MEDS ORDERED: PNEUMOCOCCAL POLYVALENT INJ 25 MCG/0.5 ML SYR IM ONE (06:00)
[2017-07-19] MEDS ORDERED: PHARMACY ORDERED LAB ONE (08:45)
[2017-07-19] MEDS: SODIUM CHLORIDE 0.9% FLUSH 5 ML FLUSH IV FLUSH SCH ×2 (09:00→20:37)
[2017-07-19] MEDS: REMOVE OLD PATCH T-DERMAL SCH (09:00)
[2017-07-19] MEDS: MULTIVITAMINS/MINERALS THERAPEUTIC TAB PO SCH (09:30)
[2017-07-19] MEDS: ASPIRIN 81 MG CHEW TAB CHEW SCH (09:31)
[2017-07-19] MEDS: ATORVASTATIN 80 MG TAB PO SCH (09:31)
[2017-07-19] MEDS: DOCUSATE SODIUM 50 MG/SENNA 8.6 MG TAB PO SCH ×2 (09:31→20:37)
[2017-07-19] MEDS: NICOTINE 14 MG/24 HR PATCH T-DERMAL SCH (09:31)
[2017-07-19] MEDS: FOLIC ACID 1 MG TAB PO SCH (09:31)
[2017-07-19] MEDS: THIAMINE HCL 100 MG TAB PO SCH (09:31)
[2017-07-19 10:56] LABS: BICARBONATE 15.4 MEQ/L (21.0-32.0); MAGNESIUM 1.3 MG/DL (1.5-2.5); POTASSIUM 3.1 MEQ/L (3.5-5.1)
[2017-07-19] MEDS ORDERED: POTASSIUM CHLORIDE 20 MEQ CONTROLLED RELEASE TAB PO ONE (11:30)
--- NOTE | 2017-07-19 11:31 | HHI.PR ---
Subjective Remarks doing ok. 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 tracks me with eyes to her left. moves left leg well. heart reg ext no edema Vital Signs Date Time Temp Pulse Resp B/P (MAP) Pulse Ox O2 Delivery O2 Flow Rate FiO2 07/19/17 08:00 99.1 83 16 139/88 (105) 99 07/19/17 05:05 96 07/19/17 04:00 97.9 76 20 125/79 (94) 97 07/19/17 00:00 99.0 95 20 123/69 (87) 96 07/18/17 20:05 98.5 70 16 110/72 (85) 97 07/18/17 18:10 98.5 70 18 110/74 (86) 98 07/18/17 16:00 98.0 64 18 101/67 (78) 99 07/18/17 16:00 80 07/18/17 14:00 66 07/18/17 12:00 98.0 72 18 102/72 (82) 99 07/18/17 12:00 72 Result Diagram: 07/18/17 0459 07/19/17 0916 Date of Insertion: Jul 14, 2017 Date of Removal: Jul 16, 2017 A/P Problem List: (1) Hemiparesis ICD Codes: G81.90 - Hemiplegia, unspecified affecting unspecified side Status: Acute Plan: Left sided hemiplegia...no cva on imaging..sz and todds paralysis is leading dx Old cerebral infarct fever/leukocytosis. better elevated troponin with nml [facility] hypokalemia/hyopomag - 07/14 CT head -encephalomalacia right frontal lobe, old infarct ,or prior surgical defect but no craniotomy scar. Hypodensity lateral right cortex -07/[address] head-unchanged -CTA negative - 07/15 MRI -no acute ischemic infarct neurology following. heparin stopped. asa. iv keppra d/c to rehab when ok with Dr Potts neurology eeg noted with sharp waves right frontal area abx initiated in ICU. monitor and d/c after 7 days replace k and mg today. recheck PT and supportive care dvt prophylaxis. donita Jono Florez MD Jul 19, 2017 11:13
[2017-07-19] MEDS: MAGNESIUM SULFATE 1 GM PREMIX 100 ML IV SCH ×2 (11:43→15:04)
[2017-07-19] MEDS: INSULIN ASPART SUPPLEMENTAL SCALE SQ SCH ×3 (12:00→20:37)
[2017-07-20] VITALS: BP 157/97; PULSE 98; RESP 20; TEMP 97.8; O2SAT 95
[2017-07-20] MEDS: CHLORHEXIDINE GLUCONATE 2 % 1 PACK (2 CLOTHS) TOP SCH (03:03)
[2017-07-20] MEDS: PIPERACIL-TAZO 4.5 GM PREMIX 100 ML IV SCH ×4 (03:03→20:26)
[2017-07-20 04:00] VITALS: BP 149/97; PULSE 99; RESP 20; TEMP 98.3; O2SAT 96
[2017-07-20] MEDS: levETIRAcetam INJ 500 MG in SODIUM CHLORIDE 0.9% INJ 100 ML IV SCH ×2 (05:20→13:18)
[2017-07-20 08:00] VITALS: BP 154/96; PULSE 102; RESP 20; TEMP 97.8; O2SAT 96
[2017-07-20 08:42] LABS: BICARBONATE 14.5 MEQ/L (21.0-32.0); POTASSIUM 3.4 MEQ/L (3.5-5.1)
[2017-07-20] MEDS: SODIUM CHLORIDE 0.9% FLUSH 5 ML FLUSH IV FLUSH SCH ×2 (09:00→20:26)
[2017-07-20] MEDS: REMOVE OLD PATCH T-DERMAL SCH (09:00)
[2017-07-20] MEDS: MULTIVITAMINS/MINERALS THERAPEUTIC TAB PO SCH (09:03)
[2017-07-20] MEDS: DOCUSATE SODIUM 50 MG/SENNA 8.6 MG TAB PO SCH ×2 (09:03→20:26)
[2017-07-20] MEDS: THIAMINE HCL 100 MG TAB PO SCH (09:03)
[2017-07-20] MEDS: ASPIRIN 81 MG CHEW TAB CHEW SCH (09:04)
[2017-07-20] MEDS: FOLIC ACID 1 MG TAB PO SCH (09:04)
[2017-07-20] MEDS: ATORVASTATIN 80 MG TAB PO SCH (09:04)
[2017-07-20] MEDS: NICOTINE 14 MG/24 HR PATCH T-DERMAL SCH (09:04)
[2017-07-20] MEDS ORDERED: ASPI81TA81 PO (10:43)
[2017-07-20] MEDS ORDERED: LEVE500 PO (10:43)
[2017-07-20] MEDS ORDERED: hydrOXYzine HCL 25 MG TAB PO PRN (10:45)
--- NOTE | 2017-07-20 10:45 | HHI.DCPOC ---
Discharge Care Plan Diagnosis: (1) Hemiparesis (2) Cedric's paralysis (postepileptic) Goals to Promote Your Health * To prevent worsening of your condition and complications * To maintain your health at the optimal level Directions to Meet Your Goals Take your medications as prescribed Follow your dietary instruction Follow activity as directed Keep your appointments as scheduled Take your immunizations and boosters as scheduled If your symptoms worsen call your PCP, if no PCP go to Urgent Care Center or Emergency Room Smoking is Dangerous to Your Health. Avoid second hand smoke Call the 24-hour hour crisis hotline for domestic abuse at Jono Francois MD Jul 20, 2017 10:45
[2017-07-20] MEDS ORDERED: NYST10007 TOPICAL (10:50)
[2017-07-20] MEDS ORDERED: HYDR-3133 PO (10:50)
--- NOTE | 2017-07-20 10:52 | HHI.PR ---
Subjective Remarks pt w/out new problems Objective Vitals heart reg lung cta abd s/nt ext no edema perineum/inguinal/buttock light pink rash/excoriations no cellulitis or drainage Vital Signs Date Time Temp Pulse Resp B/P (MAP) Pulse Ox O2 Delivery O2 Flow Rate FiO2 07/20/17 08:00 97.8 102 20 154/96 (115) 96 07/20/17 04:00 98.3 99 20 149/97 (114) 96 07/20/17 00:00 97.8 98 20 157/97 (117) 95 07/19/17 20:00 99.3 92 20 184/117 (139) 96 07/19/17 18:16 99 07/19/17 16:00 99.1 93 16 157/99 (118) 99 07/19/17 12:00 98.6 90 16 153/97 (115) 99 Result Diagram: 07/18/17 0459 07/20/17 0759 Date of Insertion: Jul 14, 2017 Date of Removal: Jul 16, 2017 A/P Problem List: (1) Hemiparesis ICD Codes: G81.90 - Hemiplegia, unspecified affecting unspecified side Status: Acute Plan: Left sided hemiplegia...no cva on imaging..sz and todds paralysis is leading dx Old cerebral infarct fever/leukocytosis. better elevated troponin with nml [facility] hypokalemia/hyopomag - 07/14 CT head -encephalomalacia right frontal lobe, old infarct ,or prior surgical defect but no craniotomy scar. Hypodensity lateral right cortex -07/[address] head-unchanged -CTA negative - 07/15 MRI -no acute ischemic infarct neurology following. heparin stopped. asa. keppra eeg noted with sharp waves right frontal area abx initiated in ICU. d/c replaced k and mg today. PT and supportive care dvt prophylaxis. donita diet discussed with Dr Potts. he is ok with d/c and prefers rehab. 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
[2017-07-20] MEDS ORDERED: POTASSIUM CHLORIDE 20 MEQ CONTROLLED RELEASE TAB PO ONE (11:00)
[2017-07-20] MEDS ORDERED: hydrOXYzine HCL 25 MG TAB PO ONE (11:45)
[2017-07-20 12:00] VITALS: BP 138/91; PULSE 99; RESP 20; TEMP 98; O2SAT 97
[2017-07-20] MEDS: NYSTATIN 100,000 U/GM PWD 15 GM BTL TOPICAL SCH ×2 (14:00→20:26)
[2017-07-20 16:00] VITALS: BP 97/71; PULSE 94; RESP 18; TEMP 98.9; O2SAT 91
[2017-07-20 20:00] VITALS: BP 116/83; PULSE 98; RESP 18; TEMP 99.2; O2SAT 94
[2017-07-20] MEDS: levETIRAcetam 500 MG TAB PO SCH (20:26)
[2017-07-20] MEDS ORDERED: levETIRAcetam 500 MG TAB PO SCH (21:00)
[2017-07-21] VITALS: BP 102/63; PULSE 89; RESP 18; TEMP 98; O2SAT 95
[2017-07-21] MEDS: CHLORHEXIDINE GLUCONATE 2 % 1 PACK (2 CLOTHS) TOP SCH (03:08)
[2017-07-21] MEDS: PIPERACIL-TAZO 4.5 GM PREMIX 100 ML IV SCH ×2 (03:08→09:41)
[2017-07-21 04:00] VITALS: BP 109/75; PULSE 81; RESP 18; TEMP 98.7; O2SAT 96
[2017-07-21] MEDS: NYSTATIN 100,000 U/GM PWD 15 GM BTL TOPICAL SCH (05:29)
[2017-07-21 07:00] LABS: HEMATOCRIT 37.4 % (35.0-46.0); MEAN CELL VOLUME 105.9 FL (80.0-100.0); MEAN CORPUSCULAR HEMOGLOBIN 35.3 PG (27.0-34.0); MEAN CORPUSCULAR HGB CONC 33.4 % (32.0-36.0); PLATELET COUNT 168 TH/MM3 (150-450); RED BLOOD COUNT 3.54 MIL/MM3 (4.00-5.30); RED CELL DISTRIBUTION WIDTH 14.1 % (11.6-17.2); REVIEW FLAG FINAL; WHITE BLOOD COUNT 13.3 TH/MM3 (4.0-11.0)
[2017-07-21 08:00] VITALS: BP 92/62; PULSE 79; RESP 16; TEMP 98.2; O2SAT 94
[2017-07-21] MEDS: SODIUM CHLORIDE 0.9% FLUSH 5 ML FLUSH IV FLUSH SCH (09:00)
[2017-07-21] MEDS: NICOTINE 14 MG/24 HR PATCH T-DERMAL SCH (09:44)
[2017-07-21] MEDS: MULTIVITAMINS/MINERALS THERAPEUTIC TAB PO SCH (09:45)
[2017-07-21] MEDS: DOCUSATE SODIUM 50 MG/SENNA 8.6 MG TAB PO SCH (09:45)
[2017-07-21] MEDS: levETIRAcetam 500 MG TAB PO SCH (09:45)
[2017-07-21] MEDS: THIAMINE HCL 100 MG TAB PO SCH (09:45)
[2017-07-21] MEDS: FOLIC ACID 1 MG TAB PO SCH (09:45)
[2017-07-21] MEDS: ASPIRIN 81 MG CHEW TAB CHEW SCH (09:46)
--- NOTE | 2017-07-21 11:22 | HHI.DS ---
Discharge Summary Admission Date Jul 14, 2017 at 20:25 Discharge Date: Jul 21, 2017 Admitting Diagnosis stroke (1) Hemiparesis Diagnosis: Principal ICD Codes: G81.90 - Hemiplegia, unspecified affecting unspecified side Status: Acute (2) Cedric's paralysis (postepileptic) Diagnosis: Principal ICD Codes: G83.84 - Cedric's paralysis (postepileptic) Status: Acute CBC/BMP: 07/21/17 0544 07/20/17 0759 Significant Findings Laboratory Tests Test 07/18/17 21:30 07/19/17 09:16 07/20/17 07:59 07/21/17 05:44 Blood Urea Nitrogen 4 MG/DL (7-18) 3 MG/DL (7-18) Calcium Level 8.0 MG/DL (8.5-10.1) 8.2 MG/DL (8.5-10.1) Magnesium Level 1.3 MG/DL (1.5-2.5) Potassium Level 3.1 MEQ/L (3.5-5.1) 3.4 MEQ/L (3.5-5.1) Chloride Level 115 MEQ/L (98-107) 112 MEQ/L (98-107) Carbon Dioxide Level 15.4 MEQ/L (21.0-32.0) 14.5 MEQ/L (21.0-32.0) White Blood Count 13.3 TH/MM3 (4.0-11.0) Red Blood Count 3.54 MIL/MM3 (4.00-5.30) Mean Corpuscular Volume 105.9 FL (80.0-100.0) Mean Corpuscular Hemoglobin 35.3 PG (27.0-34.0) Hospital Course (1) Hemiparesis Left sided hemiplegia...no cva on imaging..sz and todds paralysis is leading dx Old cerebral infarct fever/leukocytosis. resolved. abx stopped elevated troponin with nml [facility] hypokalemia/hyopomag replaced - 07/14 CT head -encephalomalacia right frontal lobe, old infarct ,or prior surgical defect but no craniotomy scar. Hypodensity lateral right cortex -07/[address] head-unchanged -CTA negative - 07/15 MRI -no acute ischemic infarct neurology following. heparin stopped. asa. keppra eeg noted with sharp waves right frontal area abx initiated in ICU. d/c replaced k and mg PT and supportive care dvt prophylaxis. donita diet discussed with Dr Potts. he is ok with d/c and prefers rehab. (2) Cedric's paralysis (postepileptic) I Pt Condition on Discharge: Stable Discharge Disposition: Rehab Inpatient Discharge Instructions DIET: Follow Instructions for: As Tolerated, No Restrictions Activities you can perform: Regular-No Restrictions Follow up Referrals: Neurology - 2 Weeks with Kayden Potts PhD MD New Medications: Aspirin (Aspir-81) 81 Mg Tabdr 81 MG PO DAILY for Stroke Prevention for 90 Days, #90 TAB Levetiracetam (Keppra) 500 Mg Tab 1000 MG PO BID for Control Seizures, #120 TAB 0 Refills Hydroxyzine HCl (Hydroxyzine HCl) 25 Mg Tab 25 MG PO Q8H PRN for itching for 7 Days, #21 TAB Nystatin Topical (Nystop Topical) 100,000 Unit/Gm Powd 1 APPLIC TOPICAL Q8HR for Rash for 10 Days, PACKET apply to perineum/inguinal area Discontinued Medications: Levetiracetam (Keppra) Unknown Strength Tab Unknown Dose PO BID for Control Seizures, #60 TAB 0 Refills Jono Francois MD Jul 21, 2017 11:22
[2017-07-21 12:00] VITALS: BP 102/70; PULSE 80; RESP 17; TEMP 97.7; O2SAT 96
[2017-08-01] MEDS ORDERED: COMMODE 3-IN-11 MIS (16:32)
[2017-08-01] MEDS ORDERED: WHEEMIS3 (16:32)
[2017-08-06] MEDS ORDERED: NICO14DI23 T-DERMAL (09:15)
[2017-08-06] MEDS ORDERED: ASPI81TA81 PO (09:15)
[2017-08-06] MEDS ORDERED: LEVE500 PO (09:15)
[2017-08-06] MEDS ORDERED: MAGN400T3 PO (09:15)
[2017-08-06] MEDS ORDERED: POTA20TA5 PO (09:15)
[2017-08-06] MEDS ORDERED: TAMS5CAP PO (09:15)
[2017-08-06] MEDS ORDERED: FAMO20TA2 PO (09:15)
[2017-08-06] MEDS ORDERED: NYST15T TOPICAL (09:15)
== END 2017-07-21 13:32 | DRG 101 ==
LOC: NEPE 16:53 → EDBD 20:25 → NEDA 20:25 → N03B 23:46 → N05B 07-18 17:56
PROVIDERS: ADMIT Internal Medicine Critical Care Medicine; ATTEND Internal Medicine Critical Care Medicine
PROC: B2111ZZ Fluoroscopy of Multiple Coronary Arteries using Low Osmolar Contrast (ICD-10-PCS; 2017-07-16)
PROC: B2151ZZ Fluoroscopy of Left Heart using Low Osmolar Contrast (ICD-10-PCS; 2017-07-16)
PROC: 4A023N7 Measurement of Cardiac Sampling and Pressure, Left Heart, Percutaneous Approach (ICD-10-PCS; principal; 2017-07-16 07:30)
DX: G40.909 Epilepsy, unspecified, not intractable, without status epilepticus (principal); D69.6 Thrombocytopenia, unspecified; G93.89 Other specified disorders of brain; G81.94 Hemiplegia, unspecified affecting left nondominant side; R47.01 Aphasia; G83.84 Todd's paralysis (postepileptic); Z87.820 Personal history of traumatic brain injury; E87.6 Hypokalemia; I10 Essential (primary) hypertension; F17.210 Nicotine dependence, cigarettes, uncomplicated; R74.8 Abnormal levels of other serum enzymes; Z23 Encounter for immunization
CPT/HCPCS: 36556; 36600; 70450; 70496; 70498; 70551; 71010; 76937; 80048; 80053; 80061; 80202; 80307; 81001; 82550; 82552; 82805; 82948; 83036; 83605; 83735; 84100; 84132; 84155; 84484; 85025; 85027; 85610; 85730; 86850; 86900; 86901; 87040; 87086; 87641; 90471; 90732; 93005; 93306; 93458; 95819; 96361; 96365; C1760; C1769; C1893; G0009; G0269; J0610; J0696; J1644; J1953; J2250; J2543; J3370; J3411; J3475; J3480; J7030; J7050; Q9967